=== PATIENT | male | born 1960 | race Caucasian/White ===

== ENCOUNTER 2024-11-14 11:59 | Inpatient (IN) ==
--- NOTE | 2024-11-14 12:32 | Emergency Department Note ---
Impression & Plan Acute CVA (cerebrovascular accident), Chest pain, Gait instability ED Provider Note HISTORY OF PRESENT ILLNESS: Patient is a 64-year-old male presenting with chest pain and gait instability. Patient reports that for the last 3 to 4 days he has been having intermittent episodes of chest pain. He states that he is also been feeling very rundown and tired. He states for the last 3 to 4 days he is also been having dizziness, described as feeling very unsteady on his feet. He reports he has been stumbling and running into things. He states that his vision has also been quite blurry. He denies any numbness or tingling or weakness in his extremities. He states that even yesterday walking in the store with a cart in front of him, he kept tripping and falling. He denies wrecking his head or loss of consciousness. He does report having intermittent sharp pains in the front of his head like a headache and also pain in the back of his neck. He denies any anticoagulation or antiplatelet use. He denies any history of cardiac stents. Denies any DVT or PE history. He denies any recent falls or chiropractic manipulation of his neck. He states that his hearing also sounds "advanced and everything sounds really loud." Denies any recent fevers. ROS: as above PHYSICAL EXAM: Constitutional: Patient appears in no acute distress. HENT: Head: Normocephalic and atraumatic. Eyes: EOMI, PERRL Mouth/Throat: Mucous membranes moist. Ears: TM intact without erythema or bulging. External canals without erythema or discharge. Neck: Trachea midline. Neck supple. Cardiovascular: RRR, No murmurs, rubs or gallops. Intact distal pulses. Pulmonary/Chest: No respiratory distress. Breath sounds clear and equal bilaterally. No wheezes or rales. Abdominal: Abdomen soft, no tenderness, rebound or guarding. Musculoskeletal: No edema, tenderness or deformity noted. Skin: Warm and dry. No rash, erythema, pallor or cyanosis Psychiatric: Appropriate mood and affect for situation. Neurological: Alert and keenly responsive. Facies symmetric. Able to raise eyebrows, close eyes, smile, puff mouth, stick out tongue, move tongue left and right and raise palate symmetrically. Able to shrug shoulders. PERRLA. SILT to forehead below eye and at jawline. Can hear soft noise bilaterally. Good finger to nose. Strength 5/5 in bilateral upper and lower extremities. SILT throughout bilateral upper and lower extremities. MDM: - Vitals signs showed hypertension - History obtained via patient. History as above. - Chronic conditions affecting care: HLD; DM-2 - Differential diagnoses include, but are not limited to: ACS; pneumonia; aortic dissection; CVA; intracranial hemorrhage; vertigo - Order placed for continuous cardiac monitoring. At this time, monitor showed rate of 76 bpm with normal sinus rhythm, per my interpretation. - External medical records reviewed. Primary care visit note dated 03/03/2019 was reviewed. Patient followed in their clinic for his type 2 diabetes. - EKG image interpreted by myself showed normal sinus rhythm. Rate 79 bpm. QT 440. No acute ischemic changes. Noted to have a right bundle branch block. - Laboratory workup interpreted by myself showed normal WBC; normal PT/INR; stable electrolytes; normal troponin - CXR image reviewed by myself 9 for pneumonia, per my interpretation. - CT head wo contrast showed interval right sided infarction of uncertain chronicity. - CTA head showed age-indeterminate basal ganglia and right frontal lobe chavez radiata lacunar infarcts that are new from 2020. Noted to have age- indeterminate high-grade stenosis of the V4 segment of the left vertebral artery which is new from previous imaging. - CTA neck showed progressive severe focal narrowing distally to the vertebral arteries bilaterally. - Patient has been having symptoms for over 3 days. He is outside the window for TNK. CT imaging does not show any large vessel occlusion. Patient was loaded with 324 mg of aspirin and 300 mg of Plavix given his stroke findings on CT imaging. Concerned that these are likely more subacute given that his symptoms started 3 to 4 days ago. Will admit to hospital service for further stroke workup. - Discussion was had with case advocate about patient's case and need for admission - Hospitalist consulted for admission - [facility] ASSESSMENT AND PLAN: Diagnosis: acute CVA; chest pain; gait instability Plan: Admit Past Med/Surg History Problem List (Updated 11/14/24 @ 14:09 by Shanna Campbell MD) Gait instability (Acute) Chest pain (Acute) Acute CVA (cerebrovascular accident) (Acute) COVID-19 (Acute) Vitamin B12 deficiency (Acute) Type 2 diabetes mellitus (Chronic) Hyperlipidemia (Acute) Diabetic peripheral neuropathy (Acute) Asthma (Acute) Abdominal lump (Acute) Medical History Abdominal lump Asthma Diabetic peripheral neuropathy History of renal calculi Hyperlipidemia Type 2 diabetes mellitus Vitamin B12 deficiency Family History Family/Other Breast cancer Colon cancer Prostate cancer Myocardial infarction Mother Heart disease Grandmother (Maternal) Heart disease Father Prostate cancer Grandfather (Paternal) Prostate cancer Denies family history of Ovarian cancer Social History Smoking Status: Never smoker Do You Dip or Chew Tobacco: No; Hx Alcohol Use: Yes Hx Substance Use: No Preferred Language: Mexican Visual Impairment: No Limitations Hearing Ability: Normal marital status: Single current occupational status: employed 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 Feels Safe at Home: Yes Physical Activity Frequency: Does not Exercise Seatbelt Use: always Allergies Allergies Allergy/AdvReac Type Severity Reaction Status Date / Time amoxicillin Allergy Unknown Verified 02/18/21 14:08 Penicillins Allergy HIVES Verified 02/18/21 14:08 Home Meds Home Medications Medication Instructions Recorded Confirmed cholecalciferol (vitamin D3) 50 2,000 units PO QAM #30 caps 02/11/19 11/14/24 mcg (2,000 unit) capsule gabapentin 300 mg capsule 300 mg PO UD 07/19/20 11/14/24 aspirin 81 mg chewable tablet 81 mg PO HS 02/18/21 11/14/24 cinnamon bark 500 mg capsule 500 mg PO BID 02/18/21 11/14/24 (Cinnamon) empagliflozin 25 mg tablet 25 mg PO QAM 02/18/21 11/14/24 (Jardiance) mecobalamin (vitamin B12) 1,000 1,000 mcg PO QAM 02/18/21 11/14/24 mcg chewable tablet (B12 Active) atorvastatin 20 mg tablet 20 mg PO QAM 11/14/24 11/14/24 dulaglutide 1.5 mg/0.5 mL 1.5 mg subcut WK 11/14/24 11/14/24 subcutaneous pen injector (Trulicity) Previous Rx's Medication Instructions Recorded metformin 1,000 mg tablet 1,000 mg PO BID #60 tabs 02/15/19 Results & Data (ED) Vital Signs Vital Signs - 24 hr 11/14/24 12:05 11/14/24 12:30 11/14/24 13:13 Temperature 36.7 C Temperature Source Temporal Artery Scan Pulse Rate 86 78 80 Pulse Rate [Apical] Pulse Rhythm Regular Pulse Rhythm [Apical] Pulse Strength [Apical] Respiratory Rate 18 16 Respiratory Effort / Characteristics Non-Labored Spontaneous Respiratory Depth Normal Respiratory Pattern Blood Pressure 195/98 H Blood Pressure [Right Arm] Blood Pressure Mean 130 Blood Pressure Mean [Right Arm] Blood Pressure Position [Right Arm] Pulse Oximetry 98 98 Oxygen Delivery Method Room Air Room Air Sepsis Recent Fever Within 48 Hours No Sepsis New/Unexplained Change in Mental Status No Sepsis Action Taken by Nursing No Action Required 11/14/24 13:39 11/14/24 14:20 Temperature Temperature Source Pulse Rate Pulse Rate [Apical] 76 80 Pulse Rhythm Pulse Rhythm [Apical] Regular Regular Pulse Strength [Apical] Normal Respiratory Rate 14 20 Respiratory Effort / Characteristics Non-Labored Spontaneous Non-Labored Spontaneous Respiratory Depth Normal Normal Respiratory Pattern Regular Regular Blood Pressure Blood Pressure [Right Arm] 170/95 H 176/90 H Blood Pressure Mean Blood Pressure Mean [Right Arm] 120 118 Blood Pressure Position [Right Arm] Lying Sitting Pulse Oximetry 96 98 Oxygen Delivery Method Room Air Room Air Sepsis Recent Fever Within 48 Hours Sepsis New/Unexplained Change in Mental Status Sepsis Action Taken by Nursing Laboratory Data 11/14/24 12:28 11/14/24 12:28 Lab Results 11/14/24 Range/Units 12:28 WBC 7.84 (4.8-10.8) K/ul RBC 5.34 (4.70-6.10) M/uL Hgb 15.8 (14.0-18.0) g/dl Hct 47.4 (42.0-52.0) % MCV 88.8 (80.0-100.0) fL MCH 29.6 (25.0-34.0) pg MCHC 33.3 (32.0-36.0) g/dL RDW Std Deviation 39.8 (36.4-46.3) fL RDW Coeff of Sandeep 12.3 (11.5-14.5) % Plt Count 296 (130-400) K/uL MPV 11.0 (9.4-12.4) fL Immature Gran % (Auto) 0.3 % Neut % (Auto) 59.9 % Lymph % (Auto) 27.8 % Citrus % (Auto) 10.2 % Eos % (Auto) 0.9 % Baso % (Auto) 0.9 % Neut # (Auto) 4.70 (1.40-6.50) K/uL Lymph # (Auto) 2.18 (1.20-3.40) K/uL Citrus # (Auto) 0.80 H (0.11-0.59) K/uL Eos # (Auto) 0.07 (0.00-0.50) K/uL Baso # (Auto) 0.07 (0.00-0.20) K/uL Immature Gran # (Auto) 0.02 (0.01-0.20) K/uL PT 10.3 (9.0-12.0) Seconds INR 0.9 (0.9-1.1) Sodium 139 (136-145) mmol/L Potassium 4.2 (3.5-5.1) mmol/L Chloride 103 (98-107) mmol/L Carbon Dioxide 27 (21-32) mmol/L Anion Gap 9 (3-11) BUN 13 (6-23) mg/dl Creatinine 0.89 (0.6-1.4) mg/dl Est Cr Clr Drug Dosing 95.8 ml/min eGFR 96.29 BUN/Creatinine Ratio 14.6 (10-20) Glucose 144 H (70-99(Fasting)) mg/dl Calcium 9.9 (8.6-10.3) mg/dl Total Bilirubin 0.6 (0.2-1.0) mg/dl AST 16 (13-39) U/L ALT 20 (7-52) U/L Alkaline Phosphatase 62 (34-104) U/L Troponin I High Sens 3.4 (0-20) pg/ml Total Protein 7.9 (6.0-8.3) gm/dl Albumin 4.7 (3.4-5.0) gm/dl Globulin 3.2 (2.5-4.0) gm/dl Albumin/Globulin Ratio 1.5 (0.9-2) Administered Medications Discontinued Medications Aspirin (Aspirin Chew 324 Mg) 324 mg PO NOW STA Stop: 11/14/24 14:07 Last Admin: 11/14/24 14:15 Dose: 324 mg Documented By: ALEXA Clopidogrel Bisulfate (Clopidogrel Bisulfate 300 Mg Tab) 300 mg PO NOW STA Stop: 11/14/24 14:07 Last Admin: 11/14/24 14:15 Dose: 300 mg Documented By: ALEXA Ioversol (Optiray 320 125ml) 120 ml IV ONCE ONE Stop: 11/14/24 12:50 Last Admin: 11/14/24 12:49 Dose: 120 ml Documented By: JOYCE Imaging Data Radiologist's Impression: Chest X-Ray 11/14/24 12:10 XR chest 1V portable CLINICAL HISTORY: dizziness COMPARISON STUDY: 04/13/2022 FINDINGS: Heart size and pulmonary vasculature are normal. No effusion, consolidation, or pneumothorax. IMPRESSION: No acute findings. ACT 112: Negative or not required by law. Electronically signed by: Gonzales Walker M.D. 11/14/2024 1:[address] 11/14/24 12:10 CT head/brain wo con CLINICAL HISTORY: dizziness; headache; blurred vision. TECHNIQUE: Multiple axial CT images of the head were obtained without contrast. A dose lowering technique was utilized adhering to the principles of ALARA. COMPARISON: 07/19/2020 FINDINGS: There are interval areas of hypodensity at the right basal ganglia and right periventricular white matter consistent with interval infarction of uncertain chronicity, possibly old.. No intracranial hemorrhage seen. No mass effect, midline shift, or hydrocephalus. Visualized paranasal sinuses are clear. No mastoid effusion. No skull fracture. IMPRESSION: 1. Interval right sided infarction of uncertain chronicity. 2. No intracranial hemorrhage seen. ACT 112: Negative or not required by law. The above report was generated using voice recognition software. It may contain grammatical, syntax or spelling errors. Electronically signed by: Gonzales Walker M.D. 11/14/2024 1:08 PM Head CTA 11/14/24 12:28 CT angio head w con CLINICAL HISTORY: 64 years-old Male with blurred vision; gait instability. Acute stroke like symptoms with blurry vision COMPARISON STUDY: Head CT and CTA neck exams of same day, head CT, CTA head and neck exams 09/19/2019. TECHNIQUE: Following the IV administration of 120 cc of Optiray, CT angiogram of the brain was performed from the skull base to the vertex. Images are reviewed in the axial, sagittal, and coronal planes. 3-D MIPS images are created and assessed. IV contrast was administered without complication. All measurements were obtained according to NASCET criteria. A dose lowering technique was utilized adhering to the principles of ALARA. FINDINGS: CT BRAIN: Dictated separately. Involutional changes with chronic microvascular ischemic disease. Age-indeterminate basal ganglia and right frontal lobe chavez radiata lacunar infarcts are new from prior. CT ANGIOGRAM OF THE BRAIN: Atherosclerosis of the distal internal carotid arteries results in up to 50% stenosis bilaterally. The bilateral anterior and middle cerebral arteries are also patent. Dominant right vertebral artery. There is high-grade stenosis within the mid V4 segment of the left vertebral artery on image 66 of series 301 which has progressed from the prior. Patent basilar artery. Mild multifocal stenoses noted throughout the left posterior cerebral arteries. There are a few areas of chronic short segment high-grade stenosis noted within the right P1 segment of the posterior cerebral artery which are similar to prior. IMPRESSION: 1. Age-indeterminate basal ganglia and right frontal lobe chavez radiata lacunar infarcts are new from the 2019 comparison. 2. Age-indeterminate high-grade stenosis of the V4 segment left vertebral artery is also new from prior. 3. Unchanged chronic high-grade stenoses of the right posterior cerebral artery. ACT 112: Negative or not required by law. The above report was generated using voice recognition software. It may contain grammatical, syntax or spelling errors. Electronically signed by: Angel Glaser M.D. 11/14/2024 1:10 PM Neck CTA 11/14/24 12:28 CT angio neck with con CLINICAL HISTORY: blurred vision; gait instability. COMPARISON STUDY: 07/19/2020 TECHNIQUE: Following the IV administration of 120 of Optiray, CT angiogram of the neck was performed from the aortic arch to the skull base. Images are reviewed in the axial, sagittal, and coronal planes. 3-D MIPS images are created and assessed. IV contrast was administered without complication. All measurements were calculated based on NASCET criteria. A dose lowering technique was utilized adhering to the principles of ALARA. CT DOSE: 1203.79 mGy.cm FINDINGS: Bilateral common and internal carotid arteries show no significant narrowing or occlusion. Right vertebral artery is dominant. There is severe focal narrowing distally at the right vertebral artery, progressive. There is severe focal narrowing/possible short segment occlusion distally at the left vertebral artery, progressive. No other significant narrowing seen at the vertebral arteries. Basilar artery is patent. IMPRESSION: 1. Progressive severe focal narrowing distally at the vertebral arteries bilaterally. 2. No other significant arterial narrowing or occlusion seen at the neck and brain. ACT 112: Negative or not required by law. The above report was generated using voice recognition software. It may contain grammatical, syntax or spelling errors. Electronically signed by: Gonzales Walker M.D. 11/14/2024 1:13 PM Discharge Plan Visit Data Chief Complaint: TIA Symptoms Stated Complaint: TIA SYMPTOMS ED Provider: Shanna Campbell Discharge Problem: Acute CVA (cerebrovascular accident), Chest pain, Gait instability Forms Stand Alone Forms: [facility] [place] [employer] Prescriptions Prescriptions: No Action metformin 1,000 mg tablet 1,000 mg PO BID Qty: 60 5RF cholecalciferol (vitamin D3) 2,000 unit capsule 2,000 units PO QAM Qty: 30 gabapentin 300 mg capsule 300 mg PO UD Rx Instructions: 300MG QAM, 600MG HS aspirin 81 mg tablet,chewable 81 mg PO HS Rx Instructions: doesn't typically take. cinnamon bark [Cinnamon] 500 mg Capsule 500 mg PO BID Jardiance 25 mg tablet 25 mg PO QAM mecobalamin (vitamin B12) [B12 Active] 1,000 mcg Tablet,Chewable 1,000 mcg PO QAM Trulicity 1.5 mg/0.5 mL pen injector 1.5 mg subcut WK Rx Instructions: on the weekend atorvastatin 20 mg tablet 20 mg PO QAM Referrals Referrals: Hector Lubin MD [Primary Care Provider] -
[2024-11-14] MEDS: OPTIRAY 320 125ml IV ONE (12:49)
--- NOTE | 2024-11-14 13:05 | XRay Report ---
XR chest 1V portable CLINICAL HISTORY: dizziness COMPARISON STUDY: 04/13/2022 FINDINGS: Heart size and pulmonary vasculature are normal. No effusion, consolidation, or pneumothora x. IMPRESSION: No acute findings. ACT 112: Negative or not required by law. Electronically signed by: Gonzales Walker M.D. 11/14/2024 1:04 PM
--- NOTE | 2024-11-14 13:10 | CT Scan Report ---
CT head/brain wo con CLINICAL HISTORY: dizziness; headache; blurred vision. TECHNIQUE: Multiple axial CT images of the head were obtained without contrast. A dose lowering tech nique was utilized adhering to the principles of ALARA. COMPARISON: 07/19/2020 FINDINGS: There are interval areas of hypodensity at the right basal ganglia and right periventricula r white matter consistent with interval infarction of uncertain chronicity, possibly old.. No intracr anial hemorrhage seen. No mass effect, midline shift, or hydrocephalus. Visualized paranasal sinuses are clear. No mastoid effusion. No skull fracture. IMPRESSION: 1. Interval right sided infarction of uncertain chronicity. 2. No intracranial hemorrhage seen. ACT 112: Negative or not required by law. The above report was generated using voice recognition software. It may contain grammatical, syntax o r spelling errors. Electronically signed by: Gonzales Walker M.D. 11/14/2024 1:08 PM
--- NOTE | 2024-11-14 13:11 | CT Scan Report ---
CT angio head w con CLINICAL HISTORY: 64 years-old Male with blurred vision; gait instability. Acute stroke like sympt oms with blurry vision COMPARISON STUDY: Head CT and CTA neck exams of same day, head CT, CTA head and neck exams 09/19/2019 . TECHNIQUE: Following the IV administration of 120 cc of Optiray, CT angiogram of the brain was perfor med from the skull base to the vertex. Images are reviewed in the axial, sagittal, and coronal planes . 3-D MIPS images are created and assessed. IV contrast was administered without complication. All me asurements were obtained according to NASCET criteria. A dose lowering technique was utilized adherin g to the principles of ALARA. FINDINGS: CT BRAIN: Dictated separately. Involutional changes with chronic microvascular ischemic disease. Age-indetermin ate basal ganglia and right frontal lobe chavez radiata lacunar infarcts are new from prior. CT ANGIOGRAM OF THE BRAIN: Atherosclerosis of the distal internal carotid arteries results in up to 50% stenosis bilaterally. Th e bilateral anterior and middle cerebral arteries are also patent. Dominant right vertebral artery. T here is high-grade stenosis within the mid V4 segment of the left vertebral artery on image 66 of ser ies 301 which has progressed from the prior. Patent basilar artery. Mild multifocal stenoses noted th roughout the left posterior cerebral arteries. There are a few areas of chronic short segment high-gr cathy stenosis noted within the right P1 segment of the posterior cerebral artery which are similar to prior. IMPRESSION: 1. Age-indeterminate basal ganglia and right frontal lobe chavez radiata lacunar infarcts are new fro m the 2019 comparison. 2. Age-indeterminate high-grade stenosis of the V4 segment left vertebral artery is also new from raf or. 3. Unchanged chronic high-grade stenoses of the right posterior cerebral artery. ACT 112: Negative or not required by law. The above report was generated using voice recognition software. It may contain grammatical, syntax o r spelling errors. Electronically signed by: Angel Glaser M.D. 11/14/2024 1:10 PM
--- NOTE | 2024-11-14 13:15 | CT Scan Report ---
CT angio neck with con CLINICAL HISTORY: blurred vision; gait instability. COMPARISON STUDY: 07/19/2020 TECHNIQUE: Following the IV administration of 120 of Optiray, CT angiogram of the neck was performed from the aortic arch to the skull base. Images are reviewed in the axial, sagittal, and coronal plane s. 3-D MIPS images are created and assessed. IV contrast was administered without complication. All m easurements were calculated based on NASCET criteria. A dose lowering technique was utilized adherin g to the principles of ALARA. CT DOSE: 1203.79 mGy.cm FINDINGS: Bilateral common and internal carotid arteries show no significant narrowing or occlusion. Right vertebral artery is dominant. There is severe focal narrowing distally at the right vertebral a rtery, progressive. There is severe focal narrowing/possible short segment occlusion distally at the left vertebral artery, progressive. No other significant narrowing seen at the vertebral arteries. Ba silar artery is patent. IMPRESSION: 1. Progressive severe focal narrowing distally at the vertebral arteries bilaterally. 2. No other significant arterial narrowing or occlusion seen at the neck and brain. ACT 112: Negative or not required by law. The above report was generated using voice recognition software. It may contain grammatical, syntax o r spelling errors. Electronically signed by: Gonzales Walker M.D. 11/14/2024 1:13 PM
--- NOTE | 2024-11-14 13:20 | Electrocardiogram Report ---
Test Reason : Blood Pressure : */* mmHG Vent. Rate : 79 BPM Atrial Rate : 79 BPM P-R Int : 160 ms QRS Dur : 150 ms QT Int : 440 ms P-R-T Axes : 47 49 25 degrees QTcB Int : 504 ms Normal sinus rhythm Right bundle branch block Abnormal ECG When compared with ECG of 19-Jul-2020 14:13, No significant change was found Confirmed by Pal Pace ([id number]) on 11/14/2024 1:20:04 PM Referred By: REFERRED SELF Confirmed By: Pal Pace
[2024-11-14 13:24] LABS: Basophils # (auto) 0.07 K/uL (0.00-0.20); Basophils % (auto) 0.9 %; Eosinophils # (auto) 0.07 K/uL (0.00-0.50); Eosinophils % (auto) 0.9 %; Hematocrit (blood only) 47.4 % (42.0-52.0); Hemoglobin 15.8 g/dl (14.0-18.0); Immature Granulocytes # (auto) 0.02 K/uL (0.01-0.20); Immature Granulocytes % (auto) 0.3 %; Lymphocytes # (auto) 2.18 K/uL (1.20-3.40); Lymphocytes % (auto) 27.8 %; Mean Corpuscular Hemoglobin 29.6 pg (25.0-34.0); Mean Corpuscular Hgb Conc 33.3 g/dL (32.0-36.0); Mean Corpuscular Volume 88.8 fL (80.0-100.0); Monocytes % (auto) 10.2 %; Neutrophils % (auto) 59.9 %; Platelet Count 296 K/uL (130-400); RDW Coefficient of Variation 12.3 % (11.5-14.5); RDW Standard Deviation 39.8 fL (36.4-46.3); Red Blood Count 5.34 M/uL (4.70-6.10); White Blood Count 7.84 K/ul (4.8-10.8)
[2024-11-14 13:35] LABS: INR 0.9 (0.9-1.1); Prothrombin Time 10.3 Seconds (9.0-12.0)
[2024-11-14 13:38] LABS: Troponin I High Sensitivity 3.4 pg/ml (0-20)
[2024-11-14 13:47] LABS: Albumin Level 4.7 gm/dl (3.4-5.0); Bilirubin,Total 0.6 mg/dl (0.2-1.0); Calcium 9.9 mg/dl (8.6-10.3); Potassium 4.2 mmol/L (3.5-5.1)
[2024-11-14 13:53] LABS: Albumin Globulin Ratio 1.5 (0.9-2); BUN Creatinine Ratio 14.6 (10-20); Creatinine Clr Calc Pharmacy 95.8 ml/min; Globulin 3.2 gm/dl (2.5-4.0); Total Protein 7.9 gm/dl (6.0-8.3)
[2024-11-14] MEDS: CLOPIDOGREL BISULFATE 300 MG TAB PO STA (14:15)
[2024-11-14] MEDS: ASPIRIN CHEW 324 MG PO STA (14:15)
--- NOTE | 2024-11-14 14:37 | History & Physical Report ---
Date of Service November 14, 2024 Assessment & Plan (1) Acute CVA (cerebrovascular accident): (2) Gait instability: (3) Type 2 diabetes mellitus: (4) Hyperlipidemia: (5) Diabetic peripheral neuropathy: (6) Vitamin B12 deficiency: Plan This is a 64 y/o male with history of prior CVA, DM2, dyslipidemia, diabetic neuropathy, B12 deficiency, and other history as outlined below who presents with issues with his balance for the last 2-3 days. Work-up in the ED revealed age-indeterminate CVA but likely subacute when considering pt's clinical presentation. Imaging was personally reviewed. Prior neurology notes in [facility] were reviewed - pt has not been following regularly. Last PCP note from visit last week reviewed - PCP discussed the need for recommended aspirin and taking it daily at this visit. #Acute to subacute CVA, likely posterior circulation. - Admit to PCU - Neuro checks per protocol - MRI brain w/ and w/out contrast for further characterization of abnormalities seen on CT - Consult neurology - Continue DAPT for now - Increase to high-dose atorvastatin - Lipid panel and A1c in the AM - ECHO - PT/OT evaluations - Fall precautions - BP in the ED noted to be markedly elevated, will start losartan 100 mg daily and monitor. #Type 2 Diabetes #Diabetic peripheral neuropathy - BSG ACHS - A1c as above - Insulin sliding scale while admitted (discussed with pt and his ) - Diabetic diet - Holding oral meds while admitted #Hyperlipidemia - Lipid panel in the AM - Statin as above #B12 deficiency - Chronic, stable, continue outpatient supplement. Pt seen and reviewed with collaborating physician, Dr. Miranda. Plan of care discussed and as outlined above. Code status: full code DVT prophylaxis: Britany Dahl PA-C History of Present Illness Chief Complaint: loss of balance Primary Care Provider: Hector Lubin MD This is a 64 y/o male with history of prior CVA, DM2, dyslipidemia, diabetic neuropathy, B12 deficiency, and other history as outlined below who presents with issues with his balance for the last 2-3 days. He reports that he has felt off for the last two weeks with blurry vision then increased sensitivity to sounds and poor appetite. Over the last 2-3 days, he has noted difficulty with feeling off balance though denies overt vertigo or dizziness. He feels like he cannot keep his balance particularly with position changes. He has fallen at home when he lost his balance trying to get changed. Two days ago, he noted being at the grocery store and having to use the cart to help him stay balanced while walking through the store. He denies dysphagia, dysarthria, expressive aphasia, syncope. He did develop a posterior GARAY today, which was part of the reason he came to the ED for evaluation. Denies significant chest pain, dyspnea, change in bowel habits, urinary symptoms. He does note living under high amounts of stress but no significant stressful event recently. He admits that he doesn't consistently take the recommended aspirin 81 mg as he often forgets it. Of note, he saw his PCP last week and his A1c from Sep was noted to be elevated at 7.5 and triglycerides were elevated to ~400 on recent labs, which was attributed to the hyperglycemia. He is taking the recommended atorvastatin 40 mg daily as prescribed. Allergies Allergy/AdvReac Type Severity Reaction Status Date / Time amoxicillin Allergy Unknown Verified 02/18/21 14:08 Penicillins Allergy HIVES Verified 02/18/21 14:08 Home Medications Medication Instructions Recorded Confirmed Type cholecalciferol (vitamin D3) 50 2,000 units PO QAM #30 caps 02/11/19 11/14/24 History mcg (2,000 unit) capsule metformin 1,000 mg tablet 1,000 mg PO BID #60 tabs 02/15/19 11/14/24 Rx gabapentin 300 mg capsule 300 mg PO UD 07/19/20 11/14/24 History aspirin 81 mg chewable tablet 81 mg PO QAM 02/18/21 11/14/24 History cinnamon bark 500 mg capsule 500 mg PO BID 02/18/21 11/14/24 History (Cinnamon) empagliflozin 25 mg tablet 25 mg PO QAM 02/18/21 11/14/24 History (Jardiance) mecobalamin (vitamin B12) 1,000 1,000 mcg PO QAM 02/18/21 11/14/24 History mcg chewable tablet (B12 Active) alpha lipoic acid 600 mg tablet 600 mg PO DAILY 11/14/24 11/14/24 History atorvastatin 40 mg tablet 40 mg PO DAILY 11/14/24 11/14/24 History dulaglutide 1.5 mg/0.5 mL 1.5 mg subcut WK 11/14/24 11/14/24 History subcutaneous pen injector (Trulicity) Past Med/Surg History Problem List (Updated 11/14/24 @ 17:03 by Jacki Dahl PA-C) Gait instability (Acute) Chest pain (Acute) Acute CVA (cerebrovascular accident) (Acute) Medical History Vitamin B12 deficiency Type 2 diabetes mellitus Hyperlipidemia Diabetic peripheral neuropathy History of renal calculi Surgical History History of ureteroscopy ureteral stent placement History of cataract surgery Family History Family/Other Breast cancer Colon cancer Prostate cancer Myocardial infarction Mother Heart disease Grandmother (Maternal) Heart disease Father Prostate cancer Stroke Diabetes Grandfather (Paternal) Prostate cancer Sister Diabetes Family/Other Diabetes nephew Denies family history of Ovarian cancer Social History Smoking Status: Never smoker Do You Dip or Chew Tobacco: No; Hx Alcohol Use: Yes Alcohol type: beer Hx Substance Use: No Preferred Language: Nigerien Communication Ability: Effective Visual Impairment: No Limitations Hearing Ability: Normal Storage Receipt Poster Required: No Beliefs That Will Affect Care: None marital status: Single Current Living Situation: Spouse current occupational status: employed 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 Other Information That Helps Us Care for You: No Feels Safe at Home: Yes Safety Concerns: Feels Safe At This Time Physical Activity Frequency: Does not Exercise Seatbelt Use: always Assistive Devices: None Review of Systems Review of Systems: All systems reviewed & are unremarkable except as noted in Subjective Physical Exam Physical Exam: General: awake, alert, NAD HEENT: PERRL, EOMI, tongue midline, no facial droop at present Neck: supple, trachea midline Heart: RRR, no M/G/R Lungs: CTA bilaterally Abdomen: soft, NT, +BS Extremities: distal pulses intact and equal, no pedal edema Neurologic: moving all extremities, no focal weakness noted, finger to nose intact, negative seated Romberg, no pronator drift Skin: warm, dry, no jaundice or rashes noted Results & Data Results & Data Vital Signs (Past 12 Hours) Vital Signs Temp Pulse Pulse Resp BP BP Pulse Ox 11/14/24 14:20 80 20 176/90 H 98 11/14/24 13:39 76 14 170/95 H 96 11/14/24 13:13 80 11/14/24 12:30 78 16 98 11/14/24 12:05 36.7 C 86 18 195/98 H 98 O2 Del Method 11/14/24 14:20 Room Air 11/14/24 13:39 Room Air 11/14/24 13:13 11/14/24 12:30 Room Air 11/14/24 12:05 Room Air Laboratory Results Lab Results 11/14/24 Range/Units 12:28 WBC 7.84 (4.8-10.8) K/ul RBC 5.34 (4.70-6.10) M/uL Hgb 15.8 (14.0-18.0) g/dl Hct 47.4 (42.0-52.0) % MCV 88.8 (80.0-100.0) fL MCH 29.6 (25.0-34.0) pg MCHC 33.3 (32.0-36.0) g/dL RDW Std Deviation 39.8 (36.4-46.3) fL RDW Coeff of Sandeep 12.3 (11.5-14.5) % Plt Count 296 (130-400) K/uL MPV 11.0 (9.4-12.4) fL Immature Gran % (Auto) 0.3 % Neut % (Auto) 59.9 % Lymph % (Auto) 27.8 % [place] % (Auto) 10.2 % Eos % (Auto) 0.9 % Baso % (Auto) 0.9 % Neut # (Auto) 4.70 (1.40-6.50) K/uL Lymph # (Auto) 2.18 (1.20-3.40) K/uL [place] # (Auto) 0.80 H (0.11-0.59) K/uL Eos # (Auto) 0.07 (0.00-0.50) K/uL Baso # (Auto) 0.07 (0.00-0.20) K/uL Immature Gran # (Auto) 0.02 (0.01-0.20) K/uL PT 10.3 (9.0-12.0) Seconds INR 0.9 (0.9-1.1) Sodium 139 (136-145) mmol/L Potassium 4.2 (3.5-5.1) mmol/L Chloride 103 (98-107) mmol/L Carbon Dioxide 27 (21-32) mmol/L Anion Gap 9 (3-11) BUN 13 (6-23) mg/dl Creatinine 0.89 (0.6-1.4) mg/dl Est Cr Clr Drug Dosing 95.8 ml/min eGFR 96.29 BUN/Creatinine Ratio 14.6 (10-20) Glucose 144 H (70-99(Fasting)) mg/dl Calcium 9.9 (8.6-10.3) mg/dl Total Bilirubin 0.6 (0.2-1.0) mg/dl AST 16 (13-39) U/L ALT 20 (7-52) U/L Alkaline Phosphatase 62 (34-104) U/L Troponin I High Sens 3.4 (0-20) pg/ml Total Protein 7.9 (6.0-8.3) gm/dl Albumin 4.7 (3.4-5.0) gm/dl Globulin 3.2 (2.5-4.0) gm/dl Albumin/Globulin Ratio 1.5 (0.9-2) Diagnostic Findings Chest X-Ray 11/14/24 12:10 XR chest 1V portable CLINICAL HISTORY: dizziness COMPARISON STUDY: 04/13/2022 FINDINGS: Heart size and pulmonary vasculature are normal. No effusion, consolidation, or pneumothorax. IMPRESSION: No acute findings. ACT 112: Negative or not required by law. Electronically signed by: Gonzales Walker M.D. 11/14/2024 1:[address] 11/14/24 12:10 CT head/brain wo con CLINICAL HISTORY: dizziness; headache; blurred vision. TECHNIQUE: Multiple axial CT images of the head were obtained without contrast. A dose lowering technique was utilized adhering to the principles of ALARA. COMPARISON: 07/19/2020 FINDINGS: There are interval areas of hypodensity at the right basal ganglia and right periventricular white matter consistent with interval infarction of unce rtain chronicity, possibly old.. No intracranial hemorrhage seen. No mass effect, midline shift, or hydrocephalus. Visualized paranasal sinuses are clear. No mastoid effusion. No skull fracture. IMPRESSION: 1. Interval right sided infarction of uncertain chronicity. 2. No intracranial hemorrhage seen. ACT 112: Negative or not required by law. The above report was generated using voice recognition software. It may contain grammatical, syntax or spelling errors. Electronically signed by: Gonzales Walker M.D. 11/14/2024 1:08 PM Head CTA 11/14/24 12:28 CT angio head w con CLINICAL HISTORY: 64 years-old Male with blurred vision; gait instability. Acute stroke like symptoms with blurry vision COMPARISON STUDY: Head CT and CTA neck exams of same day, head CT, CTA head and neck exams 09/19/2019. TECHNIQUE: Following the IV administration of 120 cc of Optiray, CT angiogram of the brain was performed from the skull base to the vertex. Images are reviewed in the axial, sagittal, and coronal planes. 3-D MIPS images are created and assessed. IV contrast was administered without complication. All measurements were obtained according to NASCET criteria. A dose lowering technique was utilized adhering to the principles of ALARA. FINDINGS: CT BRAIN: Dictated separately. Involutional changes with chronic microvascular ischemic disease. Age-indeterminate basal ganglia and right frontal lobe chavez radiata lacunar infarcts are new from prior. CT ANGIOGRAM OF THE BRAIN: Atherosclerosis of the distal internal carotid arteries results in up to 50% stenosis bilaterally. The bilateral anterior and middle cerebral arteries are also patent. Dominant right vertebral artery. There is high-grade stenosis within the mid V4 segment of the left vertebral artery on image 66 of series 301 which has progressed from the prior. Patent basilar artery. Mild multifocal stenoses noted throughout the left posterior cerebral arteries. There are a few areas of chronic short segment high-grade stenosis noted within the right P1 segment of the posterior cerebral artery which are similar to prior. IMPRESSION: 1. Age-indeterminate basal ganglia and right frontal lobe chavez radiata lacunar infarcts are new from the 2019 comparison. 2. Age-indeterminate high-grade stenosis of the V4 segment left vertebral artery is also new from prior. 3. Unchanged chronic high-grade stenoses of the right posterior cerebral artery. ACT 112: Negative or not required by law. The above report was generated using voice recognition software. It may contain grammatical, syntax or spelling errors. Electronically signed by: Angel Glaser M.D. 11/14/2024 1:10 PM Neck CTA 11/14/24 12:28 CT angio neck with con CLINICAL HISTORY: blurred vision; gait instability. COMPARISON STUDY: 07/19/2020 TECHNIQUE: Following the IV administration of 120 of Optiray, CT angiogram of the neck was performed from the aortic arch to the skull base. Images are reviewed in the axial, sagittal, and coronal planes. 3-D MIPS images are created and assessed. IV contrast was administered without complication. All measure ments were calculated based on NASCET criteria. A dose lowering technique was utilized adhering to the principles of ALARA. CT DOSE: 1203.79 mGy.cm FINDINGS: Bilateral common and internal carotid arteries show no significant narrowing or occlusion. Right vertebral artery is dominant. There is severe focal narrowing distally at the right vertebral artery, progressive. There is severe focal narrowing/possible short segment occlusion distally at the left vertebral artery, progressive. No other significant narrowing seen at the vertebral arteries. Basilar artery is patent. IMPRESSION: 1. Progressive severe focal narrowing distally at the vertebral arteries bilaterally. 2. No other significant arterial narrowing or occlusion seen at the neck and brain. ACT 112: Negative or not required by law. The above report was generated using voice recognition software. It may contain grammatical, syntax or spelling errors. Electronically signed by: Gonzales Walker M.D. 11/14/2024 1:13 PM Medications Administered Discontinued Medications Aspirin (Aspirin Chew 324 Mg) 324 mg PO NOW STA Stop: 11/14/24 14:07 Last Admin: 11/14/24 14:15 Dose: 324 mg Documented By: ALEXA Clopidogrel Bisulfate (Clopidogrel Bisulfate 300 Mg Tab) 300 mg PO NOW STA Stop: 11/14/24 14:07 Last Admin: 11/14/24 14:15 Dose: 300 mg Documented By: ALEXA Ioversol (Optiray 320 125ml) 120 ml IV ONCE ONE Stop: 11/14/24 12:50 Last Admin: 11/14/24 12:49 Dose: 120 ml Documented By: JOYCE Supervising Physician Co-Signing Physician Notes Patient seen and examined independently. Discussed with above provider Patient is a 64-year-old male with past medical history of type 2 diabetes mellitus, hyperlipidemia, diabetic neuropathy, hypertension, presents to the hospital with concern of subacute stroke. Patient reports imbalance for last 3 days. No focal neurological deficit on examination. CT head without contrast showed interval right-sided infarction of uncertain chronicity. CTA head and neck shows progressive severe focal narrowing of distally at the vertebral arteries bilaterally. He was also found to have a is indeterminant basal ganglia and right frontal lobe infarct. Plan to obtain MRI brain with and without contrast. Started on aspirin and Plavix. Increase Lipitor to 40 mg once a day. Obtain lipid panel in AM. Start losartan for high blood pressure. PT OT eval and neurology consultation. I have reviewed the advanced practitioner's documentation, and I agree with, and take responsibility for the plan of care I spent a total of 25 minutes coordinating, documenting, and providing care for this patient excluding time spent in the performance of separately billed services. All of the aforementioned completed while collaborating with the assigned advanced practitioner for a full treatment plan (3) Type 2 diabetes mellitus Diabetes mellitus complication status: with other specified complication Diabetes mellitus terminal makeup operator insulin use: without terminal makeup operator use Qualified Code(s): E11.69 - Type 2 diabetes mellitus with other specified complication (4) Hyperlipidemia Hyperlipidemia type: unspecified Qualified Code(s): E78.5 - Hyperlipidemia, unspecified
[2024-11-14] MEDS ORDERED: GLUCAGON FOR INJ 1 MG VIAL SQ PRN (16:37)
[2024-11-14] MEDS ORDERED: CARBOHYDRATES FOR HYPOGLYCEMIA PO PRN (16:37)
[2024-11-14] MEDS ORDERED: GLUCOSE 40% GEL 15 GM TUBE PO PRN (16:37)
[2024-11-14] MEDS ORDERED: GLUCOSE 10 TAB/TUBE PO PRN (16:37)
[2024-11-14] MEDS ORDERED: DEXTROSE 50% 50 ML SYRINGE IV PRN (16:37)
[2024-11-14] MEDS ORDERED: ACETAMINOPHEN 325 MG TAB PO PRN (16:55)
[2024-11-14] MEDS ORDERED: PHARMACIST DISCHARGE MED REC CONSULT PRN (16:55)
[2024-11-14] MEDS: LOSARTAN POTASSIUM 50 MG TAB PO SCH (18:31)
[2024-11-14 19:33] LABS: Appearance Urine Clear (Clear); Bilirubin Urine Negative (Negative); Blood Urine Negative (Negative); Color Urine Yellow; Glucose Urine UA 3+ (Negative); Ketones Urine 2+ (Negative); Leukocyte Esterase Urine Negative (Negative); Nitrite Urine Negative (Negative); Protein Urine Negative (Negative); Urobilinogen Urine Negative (Negative)
--- OUTSIDE RECORDS SUMMARY | 2024-11-14 19:56 | External Medical Summary | Summary of Care ---
Author Name Unknown Organization [facility] Address [address] [place] [address] Phone [phone] Care Team Providers Care Workday Consultant Name Role Phone Hector Lubin MD Primary Care Provider [phone] Reason for Visit * Reason Comments eRx-Medication Refill Encounter Details Date Type Department Care Team (Late st Contact Info) Description 09/07/2024 Refill Pharmacy, [facility] [address] [place] [address] Hector Lubin MD [address] [place] [address] Type 2 diabetes mellitus with hemoglobin A1c goal of less than 7.0% ([facility]); Dyslipidemia; Diabetic polyneuropathy associated with type 2 diabetes mellitus ([facility]) Allergies Active Allergy Reactions Criticality Noted Date Comments Penicillins Hives 04/04/2013 documented as of this encounter (statuses as of 09/08/2024) Medications B-12 500 MCG PO TABS 1 TABLET DAILY 02/28/20 14 Active CINNAMON 500 MG PO CAPS 2 tablets daily 02/28/20 14 Active VITAMIN D 1000 UNITS PO CAPSIndications:Vi tamin D deficiency 1 capsule daily 30 Cap 11 03/08/20 14 Active Alpha-Lipoic Acid 600 MG Capsule One in the am daily Active Glucose Blood (EASY TRAK BLOOD GLUCOSE TEST) STRPIndications:Ty pe 2 diabetes mellitus with hemoglobin A1c goal of less than 7.0% ([facility]) Twice daily Dx E11.9 100 Strip 5 07/06/20 16 Active Glucose Blood (ONETOUCH VERIO) STRPIndications:Ty pe 2 diabetes mellitus with hemoglobin A1c goal of less than 7.0% (HCC) Twice daily 100 Strip 5 08/29/19 17 Active PEG 3136-XAc-AwFdg-NaC l-NaSulf 236 GM Oral Solution Reconstituted Please take according to Colonoscopy prep instructions. 4000 mL 03/18/20 21 Active diphenhydrAMINE HCl 25 MG Oral Tablet (Benadryl) Use 1-2 tablets at onset of suspected allergic reaction. May repeat dose every 4-6 hours as needed 30 Tab 05/08/20 21 Active Loratadine 10 MG Oral Tablet (Claritin) Take 1 tablet daily as needed for allergic nasal symptoms or persistent itchy rash. 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 90 Tablet 3 12/02/19 24 Active Trulicity 1.5 MG/0.5ML Subcutaneous Solution Auto-injector (Dulaglutide) INJECT THE CONTENTS OF 1 SYRINGE UNDER THE SKIN ONCE A WEEK 6 mL 1 07/01/20 24 Active Atorvastatin Calcium 40 MG Oral Tablet (Lipitor)Indicatio ns:Dyslipidemia Take 1 Tablet by mouth in the morning. 90 Tablet 09/08/19 25 Active Empagliflozin 25 MG Oral Tablet (Jardiance) Take 1 Tablet by mouth in the morning. 90 Tablet 09/08/19 25 Active metFORMIN HCl 1000 MG Oral Tablet (Glucophage)Indica tions:Type 2 diabetes mellitus with hemoglobin A1c goal of less than 7.0% (HCC) Take 1 Tablet by mouth 2 times a day with morning and evening meals. 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 stroke 07/16/2022 Type 2 diabetes mellitus wit h hemoglobin A1c goal of less than 7.0% Overview (11/27/2015): ICD-10 update of inactive term Dyslipidemia Neuropathy, diabetic documented as of this encounter (statuses as of 09/08/2024) Resolved Problems Problem Noted Date Diagnosed Date Resolved Date Allergic rhinitis 05/08/2021 04/13/2022 Depression 04/13/2022 Vitamin D deficiency 022 documented as of this encounter (statuses as of 09/08/2024) Immunizations Name Administration Dates Next Due Pneumococcal Polysaccharide PPV23 (Pneumovax) Seasonal Influenza Virus Vac cine, Unspecified Formulation 07/11/2015 Seasonal Influenza, Quadrivalent, No Preserve, I M 07/11/2015 TDAP (age 10 and older)(Boostrix) 01/31/2014 documented as of this encounter Social History Tobacco Use Types Packs/Day Years Used Date Smoking Tobacco: Never Smokeless Tobacco: Never Comments:No passive smoke ex posure Alcohol Use Standard Drinks/Week Comments No 0 (1 standard drink = 0.6 oz pur e alcohol) very rare PHQ-2 Answer Date Recorded PHQ Adult Total Score 0 10/14/2023 Hunger Vital Sign Answer Date Recorded Within the past 12 months, y ou worried that your food would run out before you got the money to buy more. Never true 04/09/20 23 Within the past 12 months, t he food you bought just didn't last and you didn't have money to get more. Never true 04/09/2023 Childcare Answer Date Recorded Do you feel overwhelmed with taking care of a child, family member or friend? No 04/09/2023 Does your family need help f inding childcare? (Household - for ages 0-17 years) Not on file 04/09/2023 Clothing Answer Date Recorded Have you been unable to get clothing when it was really needed? No 04/09/2023 Is your family able to get c lothes or diapers when needed? (Household - for ages 0-17 years) Not on file 04/09/2023 Personal Safety Answer Date Recorded Do you feel unsafe or have concerns for your saf ety? No 04/09/2023 Do you have concerns for you r family's safety? (Household - for ages 0-17 years) Not on file 04/09/2023 Utilities Answer Date Recorded Do you have trouble paying y our heating, water, or electric bill? No 04/09/2023 Is your family able to pay t he heat, water, or electric bill? (Household - for ages 0-17 years) Not on file 04/09/2023 Does your family have access to good internet? (Household - for ages 0-17 years) Not on file 04/09/2023 Employment Status Answer Date Recorded Are you unemployed or without regular income? No 04/09/2023 Does the household have a re gular source of income? (Household - for ages 0-17 years) Not on file 04/09/2023 Social Connections Answer Date Recorded How often do you feel lonely or isolated from th ose around you? Never 04/09/2023 Financial Resource Strain Answer Date R ecorded Do you have any trouble payi ng for your medications, or do you think you might in the future? No 04/09/2023 Does your family have troubl e paying for medicine? (Household - for ages 0-17 years) Not on file 04/09/2023 Transportation Needs Answer Date Record ed READ ONLY Do you have troubl e getting a ride to medical visits or work? Never True 04/09/2023 Does your family have a hard time getting a ride to doctors visits? (Household - for ages 0-17 years) Not on file 04/09/2023 Has lack of transportation k ept you from medical appointments, meetings, work, or from getting things needed for daily living? Check all that apply. (Adult - for ages 18 years and over) Not on file 04/09/2023 Do you (or your family) have trouble finding or paying for a ride (transportation)? (Household - for ages 0-17 years) Not on file 04/09/2023 Housing Stability Answer Date Recorded Do you currently live in a s helter or have no steady place to sleep at night? No 04/09/2023 READ ONLY Do you think you a re at risk of becoming homeless? No 04/09/2023 Does your family worry about paying for your home or becoming homeless? (Household - for ages 0-17 years) Not on file 0 04/09/2023 Are you homeless or worried that you might be in the future? (Adult - for ages 18 years and over) Not on file 3 Are you (or your family) yulia eless or worried that you might be in the future? (Household - for ages 0-17 years) Not on file Food Insecurity Answer Date Recorded Do you need food for this week? No 04/09/2023 Are you able to get enough f ood for your family? (Household - for ages 0-17 years) Not on file 04/09/2023 Does your family need food t his week? (Household - for ages 0-17 years) Not on file 04/09/2023 Do you always have enough fo od for your family? (Household - for ages 0-17 years) Not on file 04/09/2023 Sex and Gender Information Value Date Recorded Sex Assigned at Male 08/18/2019 8:00 AM EST Legal Sex Male 2:48 PM EDT Gender Identity Male 08/18/2019 8:00 AM EST Sexual Orientation Straight 08/18/2019 8: 00 AM EST Occupation Industry Job Start Date Job End Date Not on file Not on file Not on file Not on file documented as of this encounter Miscellaneous Notes * Telephone Encounter - Florecita Le, [facility] - 09/08/2024 9:16 AM ESTRefused Prescriptions: Disp Refills Atorvastatin Calcium 40 MG Oral Tablet (Li*90 Tab*0 Sig: TAKE 1 TABLET BY MOUTH ONCE DAILY Refused By: FLORECITA LE Reason for Refusal: Duplicate Request Gabapentin 300 MG Oral Capsule (Neurontin) 360 Ca*0 Sig: TAKE ONE CAPSULE BY MOUTH TWICE A DAY AND TWO CAPSULES AT BEDTIME Refused By: FLORECITA LE Reason for Refusal: Duplic ate Request Jardiance 25 MG Oral Tablet (Empagliflozin)90 Tab*0 Sig: TAKE 1 TABLET BY MOUTH ONCE DAILY Refused By: FLORECITA LE Reason for Refusal: Duplicate Request metFORMIN HCl 1000 MG Oral Tablet (Glucoph*180 Ta*0 Sig: TAKE 1 TABLET BY MOUTH TWICE DAILY -EVERY MORNING AND BEFORE BEDTIME Refused By: FLORECITA LE Reason for Refusal: Duplicate Request Trulicity 1.5 MG/0.5ML Subcu taneous Soluti*6 mL 0 Sig: INJECT THE CONTENTS OF 1 SYRINGE UNDER THE SKIN ONCE A WEEK Refused By: FLORECITA LE Reason for Refusal: Duplicate Request * Telephone Encounter - Lisa Hudson [facility] - 09/07/2024 12:53 PM EST Pending Prescriptions: Disp Refills Atorvastatin Calcium 40 MG Oral Tablet [Ph*90 Tab*0 Sig: TAKE 1TABLET BY MOUTH ONCE DAILY Gabapentin 300 MG Oral Capsule [Pharmacy M*360 Ca*0 Sig: TAKE ONE CAPSULE BY MOUTH TWICE A DAY AND TWO CAPSULES AT BEDTIME Jardiance 25 MG Oral Tablet [Pharmacy Med *90 Tab*0 Sig: TAKE 1 TABLET BY MOUTH ONCE DAILY metFORMIN HCl 1000 MG Oral Tablet [Pharmac*180 Ta*0 Sig: TAKE 1 TABLET BY MOUTH TWICE DAILY -EVERY MORNING AND BEFORE BEDTIME Trulicity 1.5 MG/0.5ML Subcutaneous Soluti*6 mL 0 Sig: INJECT THE CONTENTS OF 1 SYRINGE UNDER THE SKIN ONCE A WEEK-------- documented in this encounter Plan of Treatment Upcoming Encounters Date Type Department Care Team (Late st Contact Info) Description 10/26/2024 4:00 PM EDT Office Visit [facility] [address] [phone] Hector Lubin MD [address] [address] 12/19/2024 3:00 PM EDT Office Visit Ophthalmology, [facility] [address] [place] [address] Pal Salvador DO [address] [place] [address] Scheduled Procedures Name Priority Associated Diagnoses Date/Ti me COLONOSCOPY FLEXIBLE PROXIMAL DIAGNOSTIC Recall History of colon polyps Health Maintenance Due Date Last Done Comments Cologuard 2006 Fecal Occult Blood Test 2006 Sigmoidoscopy 2006 Zoster Vaccines (1 of 2) 2011 Pneumococcal Vaccine: 50+ Years (2 of 2 - PCV) 02/27/2015 02/27/2014 DTap/Tdap Vaccines (2 - Td or Tdap) 02/01/2024 01/31/2014 Influenza Vaccine (FLU shot) (#1) 2024 07/11/2015, 07/11/2015 Albumin/Creatinine Ratio 04/09/2024 023, 08/09/2020, 07/31/2017, Additional history exists B-12 04/09/2024 04/09/2023, 06/0 01/2022, 03/18/2021, Additional history exists Diabetic Foot Exam 04/09/2024 04/09/2023, 1 09/10/2020, 09/12/2020, Additional history exists GFR 04/09/2024 04/09/2023, 06/0 01/2022, 03/18/2021, Additional history exists HbA1c 04/15/2024 10/14/2023, 09/0 01/2023, 01/07/2022, Additional history exists Diabetic Eye Exam 09/16/2024 09/16/2023, , 10/30/2022, Additional history exists Depression Screening 10/13/2024 10/14/2023 Colonoscopy 06/14/2026 06/14/2021, 06/03, 06/15/2017, Additional history exists Colorectal Cancer Screening 06/14/2026 RETIRED - COLONOSCOPY-EVERY 5 YRS AGES 18-100 Discontinued 06/14/2021, 06/14/2021, 06/15/2017, Additional history exists COVID-19 Vaccine Discontinued HPV (Gardasil) Vaccine Aged Out No lo nger eligible based on patient's age to complete this topic Hepatitis B Vaccine Aged Out No longe r eligible based on patient's age to complete this topic MENINGOCOCCAL (MENACTRA/MENVEO) Aged Out No longer eligible based on patient's age to complete this topic documented as of this encounter Medical Devices Implanted Type Area Park Aide Device Identifier Shelf Expiration Date Model / Serial / Lot Lens Intraoc 21.0 - [id number] - [id number] Implanted:Qty: 1 on 06/18/2021 by Joaquín Lieberman MD at OR [facility] Right: Eye [employer] 03/02/2026 [id number] / [id number] / [id number] Lens Intraoc 21.5 - [id number] - [id number] Implanted:Qty: 1 on 06/25/2021 by Joaquín Lieberman MD at OR [facility] Left: Eye [employer] 03/02/2026 [id number] / [id number] / documented as of this encounter Visit Diagnoses Diagnosis Type 2 diabetes mellitus with hemoglobin A1c goal of less than 7.0% (HCC) Dyslipidemia Other and unspecified hyperlipidemia Diabetic polyneuropathy associated with type 2 diabetes mellitus (HCC) documented in this encounter Care Teams Workday Consultant Relationship Specialty Start Date End Date Hector Lubin MD PCP - General Family Medicine 02/27/14 documented as of this encounter
--- OUTSIDE RECORDS SUMMARY | 2024-11-14 19:56 | External Medical Summary ---
Author Name Unknown Address Unknown Organization [id number]:LABORATORY [facility] [place] - [address] [facility] [place] [address] Laboratory Report Ordering Provider Test Date Status ANGELICA RICHARDSON 09/12/2024 07:42:55 Final Observation Date Value Abnormality Reference (Units ) Status BUN 09/12/2024 07:42:55 16 6-20 (mg/dL) Final Creatinine 09/12/2024 07:42:55 0.9 0.6-1.2 (mg/dL) Final Glomerular filtration rate/1.73 sq M.predicted [Volume Rate/Area] in Serum, Plasma or Blood by Creatinine-based formula (CKD-EPI) 09/12/2024 07:42:55 >90 >=60 (mL/min) Final eGFR is calculated based on the CKD-EPI 2020 equation. Sodium 09/12/2024 07:42:55 138 135-146 (m mol/L) Final Potassium 09/12/2024 07:42:55 4.5 3.5-5.1 (m mol/L) Final Cl 09/12/2024 07:42:55 100 98-107 (mm ol/L) Final CO2 09/12/2024 07:42:55 24 22-32 (mmo l/L) Final Anion gap 09/12/2024 07:42:55 14 7-15 (mmol /L) Final Glucose 09/12/2024 07:42:55 168 Above high normal 70 -120 (mg/dL) Final Albumin 09/12/2024 07:42:55 4.4 3.8-5.0 (g /dL) Final AST (Aspartate aminotransferase) 09/12/2024 07:42:55 20 10-50 (U/L) Fin al Alk Phos 09/12/2024 07:42:55 71 35-130 (U/ L) Final Bilirubin, Total 09/12/2024 07:42:55 0.5 <=1 .2 (mg/dL) Final Calcium 09/12/2024 07:42:55 10.0 8.4-10.2 ( mg/dL) Final Protein 09/12/2024 07:42:55 7.1 6.0-8.3 (g /dL) Final ALT (Alanine aminotransferase) 09/12/2024 07:42:55 26 10-50 (U/L) Donovan cadet Performing Location LABORATORY [facility] [place] - [address] [facility] [id number]
--- OUTSIDE RECORDS SUMMARY | 2024-11-14 19:56 | External Medical Summary ---
Author Name Unknown Address Unknown Organization [id number]:LABORATORY [facility] [place] - [address] [place] [address] Laboratory Report Ordering Provider Test Date Status ANGELICA RICHARDSON 09/12/2024 07:42:55 Final Observation Date Value Abnormality Reference (Units ) Status Triglyceride 09/12/2024 07:42:55 400 Above high normal <=174 (mg/dL) Final Triglyceride Reference Range s (mg/dL):
<150 Acceptable
150-174 Borderline high
175-499 High
>=500 Very high Cholesterol 09/12/2024 07:42:55 114 <200 (mg /dL) Final Total Cholesterol Reference Ranges (mg/dL):
<200 Desirable
200-239 Borderline high
>=240 High HDL 09/12/2024 07:42:55 32 Below low normal >39 (mg/dL) Final HDL Cholesterol Reference Ra nges (mg/dL):
>=60 High (Desirable)
<50 Low (Undesirable) For Females
<40 Low (Undesirable) For Males NON-HDL CHOLESTEROL 09/12/2024 07:42:55 82 <=159 (mg/dL) Final Non-HDL Cholesterol Referenc e Range (mg/dL):
<100 Target level for high risk ASCVD patient
<130 Optimal for general population
130-159 Near optimal for general population
160-189 Borderline High
190-219 High
>=220 Very High Performing Location LABORATORY [facility] - [address] [place] [address]
--- OUTSIDE RECORDS SUMMARY | 2024-11-14 19:56 | External Medical Summary | Summary of Care ---
Author Name Unknown Organization [facility] Address [address] [place] [address] Phone [phone] Care Team Providers Care General Road Supervisor Name Role Phone Hector Lubin MD Primary Care Provider [phone] Reason for Visit * Reason Comments Outpatient Testing Encounter Details Date Type Department Care Team (Late st Contact Info) Description 09/12/2024 7:40 AM EST Laboratory Laboratory, [facility] [address] [place] [phone] [facility] [address] [place] [address] Type 2 diabetes mellitus with hemoglobin A1c goal of less than 7.0% (HCC); Encounter for long-term (current) use of medications; Screening for prostate cancer; Dyslipidemia Allergies Active Allergy Reactions Criticality Noted Date Comments Penicillins Hives 04/04/2013 documented as of this encounter (statuses as of 09/12/2024) Medications B-12 500 MCG PO TABS 1 [...] of less than 7.0% (HCC) Twice daily Dx E11.9 100 Strip 5 07/06/20 16 Active Glucose Blood (ONETOUCH VERIO) STRPIndications:Ty pe 2 diabetes mellitus with hemoglobin A1c goal of less than 7.0% ([facility]) Twice daily 100 Strip 5 08/29/19 17 Active PEG 6702-BDj-IdChx-NaC l-NaSulf 236 GM Oral Solution Reconstituted Please [...] Additional Information Patient not taking.Reported on 08/31/2024 Aspirin 81 MG Oral Tablet ChewableIndication s: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 90 Tablet 3 12/02/19 24 Active Trulicity 1.5 MG/0.5ML Subcutaneous Solution Auto-injector (Dulaglutide) INJECT THE CONTENTS OF 1 SYRINGE UNDER THE SKIN ONCE A WEEK 6 mL 1 07/01/20 24 Active Atorvastatin Calcium 40 MG Oral Tablet (Lipitor)Indicatio ns:Dyslipidemia Take 1 Tablet by mouth in the morning. 90 Tablet 09/08/19 25 Active Gabapentin 300 MG Oral Capsule (Neurontin)Indicat ions:Diabetic polyneuropathy associated with type 2 diabetes mellitus (HCC) TAKE ONE CAPSULE BY MOUTH TWICE A DAY AND TWO CAPSULES AT BEDTIME 360 Capsule 09/08/19 25 Active Empagliflozin 25 MG Oral Tablet (Jardiance) Take 1 Tablet by mouth in the morning. 90 Tablet 09/08/19 25 Active metFORMIN HCl 1000 MG Oral Tablet (Glucophage)Indica tions:Type 2 diabetes mellitus with hemoglobin A1c goal of less than 7.0% ([facility]) Take 1 Tablet by mouth 2 times a day with morning and evening meals. 180 Tablet 09/08/19 25 Active documented as of this encounter (statuses as of 09/12/2024) Active Problems Problem Noted Date Diagnosed Date Acute right RESIDENTIAL GLAZIER stroke 07/16/2022 Type 2 diabetes mellitus wit h hemoglobin A1c goal of less than 7.0% Overview (11/27/2015): ICD-10 update of inactive term Dyslipidemia Neuropathy, diabetic documented as of this encounter (statuses as of 09/12/2024) Resolved Problems Problem Noted Date Diagnosed Date Resolved Date Allergic rhinitis 05/08/2021 04/13/2022 Depression 04/13/2022 Vitamin D deficiency 022 documented as of this encounter (statuses as of 09/12/2024) Immunizations Name Administration Dates Next Due Pneumococcal [...] No 04/09/2023 Does the household have a [facility] source of income? (Household - for ages [...] 18 years and over) Not on file Are you (or your family) yulia eless [...] on file documented as of this encounter Plan of Treatment Upcoming Encounters Date Type Department Care Team (Late st Contact Info) Description 10/26/2024 4:00 PM EDT Office Visit [facility] [place] [address] [phone] Hector Lubin MD [address] [address] 12/19/2024 3:00 PM EDT Office Visit Ophthalmology, [facility] [address] [address] Pal Salvador DO [address] [address] Pending Results Name Type Priority Associated Diagnoses Date /Time HEMOGLOBIN A1C Lab Routine Type 2 diabetes mellitus with hemoglobin A1c goal of less than 7.0% ([facility]) 09/12/2024 7:42 AM EST VITAMIN B12 Lab Routine Encounter for long-term (current) use of medications 09/12/2024 7:42 AM EST PSA Lab Routine Screening for prostate cancer 09/12/2024 7:42 AM EST LIPID PANEL WITH DIRECT LDL IF TG IS HIGH Lab Routine Dyslipidemia 09/12/2024 7:42 AM EST COMPREHENSIVE METABOLIC PANEL Lab Routine Type 2 diabetes mellitus with hemoglobin A1c goal of less than 7.0% ([facility]) Dyslipidemia 09/12/2024 7:42 AM EST ALBUMIN / CREATININE RATIO, URINE Lab Routine Type 2 diabetes mellitus with hemoglobin A1c goal of less than 7.0% ([facility]) 09/12/2024 7:42 AM EST Scheduled Procedures Name Priority Associated Diagnoses Date/Ti [...] 07/31/2017, Additional history exists B-12 04/09/2024 04/09/2023, 060 01/2022, 03/18/2021, Additional history exists Diabetic Foot Exam 04/09/2024 04/09/2023, 1 09/10/2020, 09/12/2020, Additional history exists GFR 04/09/2024 04/09/2023, 0 01/2022, 03/18/2021, Additional history exists HbA1c 04/15/2024 10/14/2023, 0 01/2023, 01/07/2022, Additional history exists Diabetic Eye [...] this encounter Medical Devices Implanted Type Area Tripe Washer Device Identifier Shelf Expiration Date Model / Serial / Lot Lens Intraoc 21.0 - [id number] - [id number] Implanted:Qty: 1 on 06/18/2021 by Joaquín Lieberman MD at OR [facility] Right: Eye [employer] 03/02/2026 [id number] / [id number] / [id number] Lens Intraoc 21.5 - [id number] - [id number] Implanted:Qty: 1 on 06/25/2021 by Joaquín Lieberman MD at OR [facility] Left: Eye [employer]OM[employer] 03/02/2026 [id number] / [id number] / documented as of this encounter Visit Diagnoses Diagnosis Type 2 diabetes mellitus with hemoglobin A1c goal of less than 7.0% (HCC) Encounter for long-term (current) use of medications Encounter for long-term (current) use of other medications Screening for prostate cancer Special screening for malignant neoplasm of prostate Dyslipidemia Other and unspecified hyperlipidemia documented in this encounter Care Teams General Road Supervisor Relationship Specialty Start Date End Date Hector Lubin MD PCP - General Family Medicine 02/27/14 documented as of this encounter
--- OUTSIDE RECORDS SUMMARY | 2024-11-14 19:56 | External Medical Summary ---
Author Name Unknown Address Unknown Organization [id number]:LABORATORY [facility] - [address] [place] [address] Laboratory Report Ordering Provider Test Date Status SCOTT RICHARDSONTERRY 09/12/2024 07:42:55 Final Observation Date Value Abnormality Reference (Units ) Status HbA1C 09/12/2024 07:42:55 7.5 Above high normal 4. 0-5.6 (%) Final The use of HbA1c to monitor glycemic status is based on normal hemoglobin and HbA composition. This test should not be used in patients with abnormal hemoglobin that affects the half life of the red blood cell or the in vivo glycation rates. Glucose, estimated average 09/12/2024 07:42:55 169 Above high normal <126 (mg/dL) Fin al Performing Location LABORATORY [facility] [place] - [address] [place] [address]
--- OUTSIDE RECORDS SUMMARY | 2024-11-14 19:56 | External Medical Summary ---
Author Name Unknown Address Unknown Organization [id number]:LABORATORY [facility] [place] - [address] [place] [address] Laboratory Report Ordering Provider Test Date Status ANGELICA RICHARDSON 09/12/2024 07:42:55 Final Observation Date Value Abnormality Reference (Units ) Status Vitamin B12 09/12/2024 07:42:55 [phone] (pg/mL) Final Performing Location LABORATORY [facility] - [address] [place] [address]
--- OUTSIDE RECORDS SUMMARY | 2024-11-14 19:56 | External Medical Summary ---
Author Name Unknown Address Unknown Organization [id number]:LABORATORY [facility] - [address] [facility] [address] Laboratory Report Ordering Provider Test Date Status SCOTT RICHARDSONTERRY 09/12/2024 07:42:55 Final Normal: <30 mg/g creatinine< br/>High: 30-300 mg/g creatinine
Very High: >300 mg/g creatinine
Nephrotic: >2200 mg/g creatinine Observation Date Value Abnormality Reference (Units ) Status Albumin, Urine 09/12/2024 07:42:55 <1.20 (mg/dL) Final Creatinine, Urine 09/12/2024 07:42:55 81 (mg/dL) Final Albumin/Creatinine [Mass Ratio] in Urine 09/12/2024 07:42:55 <15 <30 (mg/g Creat) Final Performing Location LABORATORY [facility] - [address] [place] [address]
--- OUTSIDE RECORDS SUMMARY | 2024-11-14 19:56 | External Medical Summary | Summary of Care ---
Author Name Unknown Organization [facility] Address [address] [place] [address] Phone [phone] Care Team Providers Care Safety Compliance Specialist Name Role Phone Hector Lubin MD Primary Care Provider [phone] Reason for Visit * Reason Comments Follow Up Pt states that he is here for a 6 month follow up. Pt states that he needs a refill on Econazole nitrate cream. Encounter Details Date Type Department Care Team (Late st Contact Info) Description 11/09/2024 5:40 PM EDT Office Visit [facility] [address] [place] [phone] Hector Lubin MD [address] [place] [address] Type 2 diabetes mellitus with hemoglobin A1c goal of less than 7.0% ([facility])*; Screening for depression Allergies Active Allergy Reactions Criticality Noted Date Comments Penicillins Hives 04/04/2013 documented as of this encounter (statuses as of 11/10/2024) Medications B-12 500 MCG PO TABS 1 [...] 100 Strip 5 08/29/19 17 Active PEG 9408-USo-MeUkb-NaC l-NaSulf 236 GM Oral Solution Reconstituted Please [...] Active Additional Information Patient not taking.Reported on 11/09/2024 Aspirin 81 MG Oral Tablet ChewableIndication s: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 (HCC) Take 1 Tablet by mouth [...] as of this encounter (statuses as of 11/10/2024) Active Problems Problem Noted Date Diagnosed Date 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 07/16/2022 Type 2 diabetes mellitus wit h hemoglobin A1c goal of less than 7.0% Overview (11/27/2015): ICD-10 update of inactive term Dyslipidemia Neuropathy, diabetic documented as of this encounter (statuses as of 11/10/2024) Resolved Problems Problem Noted Date Diagnosed Date Resolved Date Allergic rhinitis 05/08/2021 04/13/2022 Depression 04/13/2022 Vitamin D deficiency 022 documented as of this encounter (statuses as of 11/10/2024) Immunizations Name Administration Dates Next Due Pneumococcal Polysaccharide PPV23 (Pneumovax) Seasonal Influenza Virus Vac cine, Unspecified Formulation 07/11/2015 Seasonal Influenza, Quadrivalent, No Preserve, I M 07/11/2015 TDAP (age 10 and older)(Boostrix) 01/31/2014 documented as of this encounter Social History Tobacco Use Types Packs/Day Years Used Date Smoking Tobacco: Never Smokeless Tobacco: Never Tobacco Cessation:Counseling Given: Not Answered Comments:No passive smoke exposure Alcohol Use Standard Drinks/Week Comments No 0 (1 standard drink = 0.6 oz pur e alcohol) very rare PHQ-2 Answer Date Recorded PHQ Adult Total Score 0 11/09/2024 Hunger Vital Sign Answer Date Recorded Within the past 12 months, y ou worried that your food would run out before you got the money to buy more. Never true 11/07/19 25 Within the past 12 months, t he food you bought just didn't last and you didn't have money to get more. Never true 11/06/2024 Childcare Answer Date Recorded Do you feel overwhelmed with taking care of a child, family member or friend? No 11/06/2024 Does your family need help f inding childcare? (Household - for ages 0-17 years) Not on file 11/06/2024 Clothing Answer Date Recorded Have you been unable to get clothing when it was really needed? No 11/06/2024 Is your family able to get c lothes or diapers when needed? (Household - for ages 0-17 years) Not on file 11/06/2024 Personal Safety Answer Date Recorded Do you feel unsafe or have concerns for your saf ety? No 11/06/2024 Do you have concerns for you r family's safety? (Household - for ages 0-17 years) Not on file 11/06/2024 Utilities Answer Date Recorded Do you have trouble paying y our heating, water, or electric bill? No 11/06/2024 Is your family able to pay t he heat, water, or electric bill? (Household - for ages 0-17 years) Not on file 11/06/2024 Does your family have access to good internet? (Household - for ages 0-17 years) Not on file 11/06/2024 Employment Status Answer Date Recorded Are you unemployed or without regular income? No 11/06/2024 Does the household have a re gular source of income? (Household - for ages 0-17 years) Not on file 11/06/2024 Social Connections Answer Date Recorded How often do you feel lonely or isolated from th ose around you? Never 11/06/2024 Financial Resource Strain Answer Date R ecorded Do you have any trouble payi ng for your medications, or do you think you might in the future? No 11/06/2024 Does your family have troubl e paying for medicine? (Household - for ages 0-17 years) Not on file 11/06/2024 Transportation Needs Answer Date Record ed Do you have trouble getting a ride to medical visits or work? (Adult - for ages 18 years and over) Not on file 11/06/2024 Does your family have a hard time getting a ride to doctors visits? (Household - for ages 0-17 years) Not on file 11/06/2024 Has lack of transportation k ept you from medical appointments, meetings, work, or from getting things needed for daily living? Check all that apply. No 11/06/2024 Do you (or your family) have trouble finding or paying for a ride (transportation)? (Household - for ages 0-17 years) Not on file 11/06/2024 Housing Stability Answer Date Recorded Do you currently live in a s helter or have no steady place to sleep at night? No 11/06/2024 Do you think you are at risk of becoming homeless? (Adult - for ages 18 years and over) Not on file 11/06/2024 Does your family worry about paying for your home or becoming homeless? (Household - for ages 0-17 years) Not on file 0 11/06/2024 Are you homeless or worried that you might be in the future? No 11/06/2024 Are you (or your family) yulia eless [...] ages 0-17 years) Not on file 04/09/2023 Food Insecurity Answer Date Recorded Within the past 12 months, y ou worried that your food would run out before you got the money to buy more. Never true 11/07/19 25 Within the past 12 months, t he food you bought just didn't last and you didn't have money to get more. Never true 11/06/2024 Do you need food for this week? No 11/06/2024 Sex and Gender Information Value Date Recorded Sex Assigned at Male 08/18/2019 8:00 AM EST Legal Sex Male 2:48 PM EDT Gender Identity Male 08/18/2019 8:00 AM EST Sexual Orientation Straight 08/18/2019 8: 00 AM EST Occupation Industry Job Start Date Job End Date Not on file Not on file Not on file Not on file documented as of this encounter Last Filed Vital Signs Vital Sign Reading Time Taken Comments Blood Pressure 169/76 11/09/2024 5:08 PM EDT Pulse 90 11/09/2024 5:08 PM EDT Temperature 36.1 °C (96.9 °F) 11/09/2024 5:08 PM ED T Respiratory Rate 16 11/09/2024 5:08 PM EDT Oxygen Saturation 98% 11/09/2024 5:08 PM EDT Inhaled Oxygen Concentration - - Weight 91 kg (200 lb 9.6 oz) 11/09/2024 5:08 PM EDT Height 177.8 cm (5' 10") 11/09/2024 5:08 PM EDT Body Mass Index 28.78 11/09/2024 5:08 PM EDT documented in this encounter Progress Notes * Hector Lubin MD - 11/09/2024 8:33 PM EDT Images from the original note were not included. Subjective Hector Márquez is a 64 year old male that presents for Follow Up (Pt states that he is here for a 6 month follow up. Pt states that he needs a refill on Econazole nitrate cream. ) History of Present Illness The patient, a 64-year-old with a history of diabetes, cholesterol, diabetic neuropathy, and a previous stroke, presents with itching in the ears and a recent skin issue on the foot. The patient's blood pressure is slightly elevated compared to previous readings, but he attributes this to having a hard day. The patient's weight has remained stable at 200 pounds. The patient reports a previous issue with small bumps on the back, side, and belly that bled when rubbed. The bumps were small and hard, and the patient could not see them but could feel them. The issue lasted for about a month and a half and has since resolved. The patient's current medications include Trulicity, metformin, Jardiance, atorvastatin, baby aspirin, and alpha lipoic acid. The patient has been taking alpha lipoic acid for about 13 years and believes it has helped control his neuropathy. The patient is due for a tetanus shot and a pneumonia shot but declines both. The patient also mentions a recent lab work that showed a slight increase in his A1c from 7.4 to 7.5 and high triglycerides at 400. The patient's LDL cholesterol is well under the goal of 70. Objective BP 169/76 | Pulse 90 | Temp 96.9 °F (36.1 °C) (Tympanic) | Resp 16 | Ht 5' 10" (1.778 m) | Wt 200lb 9.6 oz (91 kg) | SpO2 98% | BMI 28.78 kg/m² | BSA 2.12 m² Physical Exam VITALS: BP- 169/76 MEASUREMENTS: Weight- 200. HEENT: Flaking, dry skin in ear canal, worse on one side. CHEST: Lungs clear to auscultation bilaterally. CARDIOVASCULAR: Heart regular rate and rhythm. EXTREMITIES: No ankle edema bilaterally. SKIN: Skin on big toe with abrasion, no erythema, no purulent drainage, no lymphangitis, no infection signs. Results LABS Hemoglobin A1c: 7.5% (09/12/2024) GFR: >90 (09/12/2024) Triglycerides: 400 mg/dL (09/12/2024) HDL: Low (09/12/2024) LDL: 40 mg/dL (09/12/2024) DIAGNOSTIC Colonoscopy: Normal (2020) Assessment and Plan Assessment & Plan Type 2 Diabetes Mellitus A1c increased to 7.5, indicating suboptimal control. Weight management crucial for glycemic control. Current medications: Metformin, Jardiance, Trulicity. Compliance noted. - Order hemoglobin A1c test in mid-January. - Encourage weight loss to improve glycemic control. Dyslipidemia Triglycerides elevated at 400 mg/dL, likely due to suboptimal diabetes control. LDL well controlledat 40 mg/dL. HDL low, chronic issue. On Atorvastatin. - Repeat lipid profile in September 2025. - Advise dietary modifications to reduce triglycerides, including limiting fats and simple sugars. Diabetic Neuropathy Symptoms well controlled with Alpha-lipoic acid and Cinnamon. Significant improvement reported. Hypertension Blood pressure elevated at 169/76 mmHg, possibly situational. Foot Lesion Blister-like lesion on foot, possibly from trauma. No infection signs, but requires monitoring due to diabetes. - Apply triple antibiotic ointment (Neosporin). - Monitor for signs of infection, such as redness or streaking. - Seek medical attention if signs of infection develop. Eczema (Ear Itching) Itching likely due to eczema. Previous hydrocortisone effective. - Apply 1% hydrocortisone cream to the affected area. Eye Discomfort Crusting in right eye, possibly due to dryness or allergies. No conjunctivitis signs. - Use a washcloth to clean the eyes. - Consider using moisturizing eye drops if symptoms persist. General Health Maintenance Due for tetanus booster and pneumonia vaccine, declined at visit. Colonoscopy due in 2025. - Consider tetanus booster and pneumonia vaccine. - Schedule next colonoscopy in 2025. Follow-up Next routine follow-up in six months. Education on tetanus vaccination and aspirin use provided. - Schedule follow-up appointment in six months. - Notify the clinic if tetanus vaccination is desired. - Continue daily aspirin, can be placed in pill box for convenience. Wrap-Up Follow Up: Return in about 6 months (around 05/11/2025). I spent a total of 30-39 minutes (exact time 30 mins) on the date of service in preparation, delivery, and documentation of the care provided to Hector Márquez excluding any time spent in the performance of separately billed services. Text in this note was generated using an [employer] documentation service. I discussed the use of a device to record and summarize our discussion today. All persons present during the encounter consented to its use. documented in this encounter Nursing Notes * Adilene Osborne LPN - 11/09/2024 5:08 PM EDT Hector Márquez is a 64 year old male who presents today for Chief Complaint Patient presents with Follow Up Pt states that he is here for a 6 month follow up .. Pt states that he needs a refill on Econazole nitrate cream. documented in this encounter Plan of Treatment Upcoming Encounters Date Type Department Care Team (Late st Contact Info) Description 12/19/2024 3:00 PM EDT Office Visit Ophthalmology, [facility] [address] [place] [phone] Pal Salvador DO [address] [place] [address] 05/17/2025 5:40 PM EDT [facility] [address] [place] [phone] Hector Lubin MD [address] [facility] [place] [address] Scheduled Orders Name Type Priority Associated Diagnoses Orde r Schedule HEMOGLOBIN A1C Lab Routine Type 2 diabetes mellitus with hemoglobin A1c goal of less than 7.0% (HCC) Expected: 11/09/2024 (Approximate), Expires: 11/09/2025 Scheduled Procedures Name Priority Associated Diagnoses Date/Ti me COLONOSCOPY FLEXIBLE PROXIMAL DIAGNOSTIC Recall History of colon polyps Health Maintenance Due Date Last Done Comments Cologuard 2006 Fecal Occult Blood Test 2006 Sigmoidoscopy 2006 Zoster Vaccines (1 of 2) 2011 Pneumococcal Vaccine: 50+ Years (2 of 2 - PCV) 02/27/2015 02/27/2014 DTap/Tdap Vaccines (2 - Td or Tdap) 02/01/2024 01/31/2014 Diabetic Foot Exam 04/09/2024 04/09/2023, 1 09/10/2020, 09/12/2020, Additional history exists HbA1c 03/12/2025 09/12/2024, 10/01, 04/09/2023, Additional history exists Influenza Vaccine (FLU shot) (Season Ended) 2025 07/11/2015, 07/11/2015 Albumin/Creatinine Ratio 09/12/2025 025, 04/09/2023, 08/09/2020, Additional history exists B-12 09/12/2025 09/12/2024, 090 01/2023, 01/07/2022, Additional history exists GFR 09/12/2025 09/12/2024, 09/0 01/2023, 01/07/2022, Additional history exists Diabetic Eye Exam 10/24/2025 10/24/2024, , 10/30/2022, Additional history exists Depression Screening 11/09/2025 11/09/2024 Colonoscopy 06/14/2026 06/14/2021, 06/03, 06/15/2017, Additional history [...] on patient's age to complete this topic Meningitis B Vaccine (Bexsero/Trumemba) Aged Out No longer eligible based on patient's age to complete this topic documented as of this encounter Medical Devices Implanted Type Area Patient Safety Tech Device Identifier Shelf Expiration Date Model / Serial / Lot Lens Intraoc 21.0 - [id number] - [id number] Implanted:Qty: 1 on 06/18/2021 by Joaquín Lieberman MD at OR [facility] Right: Eye BAUSCH 03/02/2026 [id number] / [id number] / [id number] Lens Intraoc 21.5 - [id number] - [id number] Implanted:Qty: 1 on 06/25/2021 by Joaquín Lieberman MD at OR [facility] Left: Eye BAUSCH 03/02/2026 [id number] / [id number] / documented as of this encounter Visit Diagnoses Diagnosis Type 2 diabetes mellitus with hemoglobin A1c goal of less than 7.0% ([facility])- Primary Screening for depression documented in this encounter Care Teams Safety Compliance Specialist Relationship Specialty Start Date End Date Hector Lubin MD PCP - General Family Medicine 02/27/14 documented as of this encounter
--- OUTSIDE RECORDS SUMMARY | 2024-11-14 19:56 | External Medical Summary | Summary of Care ---
Author Name Unknown Organization [facility] Address [address] [place] [address] Phone [phone] Care Team Providers Care Supervisor Livestock Yard Name Role Phone Hector Lubin MD Primary Care Provider [phone] Encounter Details Date Type Department Care Team (Late st Contact Info) Description 11/11/2024 Orders Only PATIENT PORTAL DO NOT DELETE [id number] Allergies Active Allergy Reactions Criticality Noted Date Comments Penicillins Hives 04/04/2013 documented as of this encounter (statuses as of 11/11/2024) Medications B-12 500 MCG PO TABS 1 [...] 100 Strip 5 08/29/19 17 Active PEG 5890-YTk-BfAob-NaC l-NaSulf 236 GM Oral Solution Reconstituted Please [...] 81 MG Oral Tablet ChewableIndication s:Acute right 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 MARKETING 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 stroke (HCC) Take 1 Tablet by mouth [...] as of this encounter (statuses as of 11/11/2024) Active Problems Problem Noted Date Diagnosed Date Acute right SEARCH MARKETING 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 stroke 07/16/2022 Type 2 diabetes mellitus wit h hemoglobin A1c goal of less than 7.0% Overview (11/27/2015): ICD-10 update of inactive term Dyslipidemia Neuropathy, diabetic documented as of this encounter (statuses as of 11/11/2024) Resolved Problems Problem Noted Date Diagnosed Date Resolved Date Allergic rhinitis 05/08/2021 04/13/2022 Depression 04/13/2022 Vitamin D deficiency 022 documented as of this encounter (statuses as of 11/11/2024) Immunizations Name Administration Dates Next Due Pneumococcal [...] 12/19/2024 3:00 PM EDT Office Visit Ophthalmology, [facility] [address] [place] [phone] Pal Salvador, DO [address] [place] [address] 05/17/2025 5:40 PM EDT Office Visit Family Practice, [facility] [place] [address] [place] [phone] Hector Lubin MD [address] [place] [address] Scheduled Procedures Name Priority Associated Diagnoses Date/Ti [...] 08/09/2020, Additional history exists B-12 09/12/2025 09/12/2024, 09/0 01/2023, 01/07/2022, Additional history exists GFR 09/12/2025 [...] this encounter Medical Devices Implanted Type Area Recreation Aide Device Identifier Shelf Expiration Date Model / Serial / Lot Lens Intraoc 21.0 - [id number] - [id number] Implanted:Qty: 1 on 06/18/2021 by Joaquín Lieberman MD at OR [facility] Right: Eye BAUSCH 03/02/2026 [id number] / [id number] / [id number] Lens Intraoc 21.5 - [id number] - [id number] Implanted:Qty: 1 on 06/25/2021 by Joaquín Lieberman MD at OR [facility] Left: Eye BAUSCH 03/02/2026 [id number] / [id number] / documented as of this encounter Care Teams Supervisor Livestock Yard Relationship Specialty Start Date End Date Hector Lubin MD PCP - General Family Medicine 02/27/14 documented as of this encounter
--- OUTSIDE RECORDS SUMMARY | 2024-11-14 19:56 | External Medical Summary | Summary of Care ---
Author Name Unknown Organization [facility] Address [address] [place] [address] Phone [phone] Care Team Providers Care Aircraft Delivery Checker Name Role Phone Hector Lubin MD Primary Care Provider [phone] Encounter Details Date Type Department Care Team (Late st Contact Info) Description 10/26/2024 Orders Only [facility] [address] [place] [address] Hector Lubin MD [address] [place] [address] Allergies Active Allergy Reactions Criticality Noted Date Comments Penicillins Hives 04/04/2013 documented as of this encounter (statuses as of 10/26/2024) Medications B-12 500 MCG PO TABS 1 [...] 100 Strip 5 08/29/19 17 Active PEG [id number]-UnNyp-NaC l-NaSulf 236 GM Oral Solution Reconstituted Please [...] 81 MG Oral Tablet ChewableIndication s: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) Take 1 Tablet by mouth [...] as of this encounter (statuses as of 10/26/2024) Active Problems Problem Noted Date Diagnosed Date 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 right 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 UTILITY 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 stroke 07/16/2022 Type 2 diabetes mellitus wit h hemoglobin A1c goal of less than 7.0% Overview (11/27/2015): ICD-10 update of inactive term Dyslipidemia Neuropathy, diabetic documented as of this encounter (statuses as of 10/26/2024) Resolved Problems Problem Noted Date Diagnosed Date Resolved Date Allergic rhinitis 05/08/2021 04/13/2022 Depression 04/13/2022 Vitamin D deficiency 022 documented as of this encounter (statuses as of 10/26/2024) Immunizations Name Administration Dates Next Due Pneumococcal [...] Description 11/09/2024 5:40 PM EDT Office Visit [facility] [place] [address] [place] [phone] Hector Lubin MD [address] [place] [address] 12/19/2024 3:00 PM EDT Office Visit Ophthalmology, [facility] [address] [place] [phone] Pal Salvador, [address] [place] [address] Scheduled Procedures Name Priority Associated Diagnoses Date/Ti [...] Vaccine (FLU shot) (#1) 2024 07/11/2015, 07/11/2015 Diabetic Foot Exam 04/09/2024 04/09/2023, 1 09/10/2020, 09/12/2020, Additional history exists Depression Screening 10/13/2024 10/14/2023 HbA1c 03/12/2025 09/12/2024, 10/01, 04/09/2023, Additional history exists Albumin/Creatinine Ratio 09/12/2025 025, 04/09/2023, 08/09/2020, Additional history exists B-12 09/12/2025 09/12/2024, 09/0 01/2023, 01/07/2022, Additional history exists GFR 09/12/2025 09/12/2024, 09/0 01/2023, 01/07/2022, Additional history exists Diabetic Eye Exam 10/26/2025 10/24/2024, , 10/30/2022, Additional history exists Colonoscopy 06/14/2026 06/14/2021, 06/03, 06/15/2017, Additional history [...] this encounter Medical Devices Implanted Type Area Social Work Professor Device Identifier Shelf Expiration Date Model / Serial / Lot Lens Intraoc 21.0 - [id number] - [id number] Implanted:Qty: 1 on 06/18/2021 by Joaquín Lieberman MD at OR [facility] Right: Eye BAUSCH & LOMB 03/02/2026 [id number] / [id number] / [id number] Lens Intraoc 21.5 - [id number] - [id number] Implanted:Qty: 1 on 06/25/2021 by Joaquín Lieberman MD at OR [facility] Left: Eye BAUSCH & LOMB 03/02/2026 [id number] / [id number] / documented as of this encounter Procedures Procedure Name Priority Date/Time Associated Diagnosis Comments DIABETIC EYE EXAM Routine 10/24/2024 documented in this encounter Results * DIABETIC EYE EXAM (10/24/2024) 10/24/2024 us History Per Patient OTHER Final Result OUTSIDE LAB (SEE SCANNED REPORT) documented in this encounter Care Teams Aircraft Delivery Checker Relationship Specialty Start Date End Date Hector Lubin MD PCP - General Family Medicine 02/27/14 documented as of this encounter
--- OUTSIDE RECORDS SUMMARY | 2024-11-14 19:56 | External Medical Summary | Summary of Care ---
Author Name Unknown Organization [facility] Address [address] [place] [address] Phone [phone] Care Team Providers Care Proof Passer Name Role Phone Dylan Lubin MD Primary Care Provider [phone] Reason for Visit * Reason Onset Date Comments Medication Refill 09/07/2024 Encounter Details Date Type Department Care Team (Late st Contact Info) Description 09/07/2024 Refill [facility] [address] [place] [phone] Dylan Lubin MD [address] [place] [address] Type 2 diabetes mellitus with hemoglobin A1c goal of less than 7.0% ([facility]); Dyslipidemia; Diabetic polyneuropathy associated with type 2 diabetes mellitus ([facility]) Allergies Active Allergy Reactions Criticality Noted [...] hemoglobin A1c goal of less than 7.0% ([facility]) Twice daily Dx E11.9 100 Strip 5 07/06/20 16 Active Glucose Blood (ONETOUCH VERIO) STRPIndications:Ty pe 2 diabetes mellitus with hemoglobin A1c goal of less than 7.0% (HCC) Twice daily 100 Strip 5 08/29/19 17 Active PEG 6963-WMa-DxDdd-NaC l-NaSulf 236 GM Oral Solution Reconstituted Please [...] 81 MG Oral Tablet ChewableIndication s:Acute right MACHINE ROPE MAKER stroke (HCC) Take 1 Tablet by mouth [...] evening meals. 180 Tablet 09/08/19 25 Active Atorvastatin Calcium 40 MG Oral Tablet (Lipitor)Indicatio ns:Type 2 diabetes mellitus with hemoglobin A1c goal of less than 7.0% ([facility]),Dyslipidemia TAKE 1 TABLET BY MOUTH ONCE DAILY 90 Tablet 3 08/14/19 24 025 Discontin ued(Refil l) Gabapentin 300 MG Oral Capsule (Neurontin)Indicat ions:Diabetic polyneuropathy associated with type 2 diabetes mellitus (HCC) TAKE ONE CAPSULE BY MOUTH TWICE A DAY AND TWO CAPSULES AT BEDTIME 360 Capsule 3 08/14/19 24 025 Discontin ued(Refil l) Jardiance 25 MG Oral Tablet (Empagliflozin)Ind ications:Type 2 diabetes mellitus with hemoglobin A1c goal of less than 7.0% ([facility]) TAKE 1 TABLET BY MOUTH ONCE DAILY 90 Tablet 3 08/14/19 24 025 Discontin ued(Refil l) metFORMIN HCl 1000 MG Oral Tablet (Glucophage)Indica tions:Type 2 diabetes mellitus with hemoglobin A1c goal of less than 7.0% ([facility]) TAKE 1 TABLET BY MOUTH TWICE DAILY EVERY MORNING AND BEFORE BEDTIME 180 Tablet 06/08/20 24 025 Discontin ued(Refil l) documented as of this encounter (statuses as of 09/08/2024) Active Problems Problem Noted Date Diagnosed Date Acute right MACHINE ROPE MAKER stroke 07/16/2022 Type 2 diabetes mellitus wit [...] encounter Miscellaneous Notes * Telephone Encounter - Ariella Acharya PA-C - 09/08/2024 1:51 PM ESTSigned Prescriptions: Disp Refills Atorvastatin Calcium 40 MG Oral Tablet (Li*90 Tab*0 Sig: Take 1 Tablet by mouth in the morning. Authorizing Provider: DYLAN LUBIN Ordering User: MIMI, SIDDHARTHA Gabapentin 300 MG Oral Capsule (Neurontin) 360 Ca*0 Sig: TAKE ONE CAPSULE BY MOUTH TWICE A DAY AND TWO CAPSULES AT BEDTIME Authorizing Provider: ARIELLA ACHARYA mpagliflozin 25 MG Oral Tablet (Jardiance)90 Tab*0 Sig: Take 1 Tablet by mouth in the morning. Authorizing Provider: DYLAN LUBIN Ordering User: MIMI SIDDHARTHA metFORMIN HCl 1000 MG Oral Tablet (Glucoph*180 Ta*0 Sig: Take 1 Tablet by mouth 2 times a day with morning and evening meals. Authorizing Provider: DYLAN LUBIN Ordering User: SIDDHARTHA LE Refused Prescriptions: Disp Refills Trulicity 1.5 MG/0.5ML Subcutaneous Soluti*6 mL 0 Sig: INJECT THE CONTENTS OF 1 SYRINGE UNDER THE SKIN ONCE A WEEK Refused By: SIDDHARTHA LE Reason for Refusal: Too soon * Telephone Encounter - Annamaria Bray CPhT - 09/08/2024 12:50 PM EST Pending Prescriptions: Disp Refills Gabapentin 300 MG Oral Capsule (Neurontin) 360 Ca*0 Sig: TAKE ONE CAPSULE BY MOUTH TWICE A DAY AND TWO CAPSULES AT BEDTIME Signed Prescriptions: Disp Refills Atorvastatin Calcium 40 MG Oral Tablet (Li*90 Tab*0 Sig: Take 1 Tablet by mouth in the morning. Authorizing Provider: DYLAN LUBIN Ordering Us er: SIDDHARTHA LE Empagliflozin 25 MG Oral Tablet (Jardiance)90 Tab*0 Sig: Take 1 Tablet by mouth in the morning. Authorizing Provider: DYLAN LUBIN Ordering User: MIMISIDDHARTHA metFORMIN HCl 1000 MG Oral Tablet (Glucoph*180 Ta*0 Sig: Take 1 Tablet by mouth 2 times a day with morning and evening meals. Authorizing Provider: DYLAN LUBIN Ordering User: SIDDHARTHA LE Refused Pres criptions: Disp Refills Trulicity 1.5 MG/0.5ML Subcutaneous Soluti*6 mL 0 Sig: INJECT THE CONTENTS OF 1 SYRINGE UNDER THE SKIN ONCE A WEEK Refused By: SIDDHARTHA LE Reason for Refusal: Too soon * Telephone Encounter - Annamaria Bray CPhT - 09/08/2024 12:50 PM EST Received message from [facility] regarding patient needing labs. Call Placed, Pt was agreeable to set up lab appointment. Patient scheduled for 09/12/24. Thank you, Annamaria Bray CphT Sampler Pickup III [facility] 09/08/24 * Telephone Encounter - Yohana Martinez [facility] - 09/08/2024 9:25 AM EST Pending Prescriptions: Disp Refills Gabapentin 300 MG Oral Capsule (Neurontin) 360 Ca*0 Sig: TAKE ONE CAPSULE BY MOUTH TWICE A DAY AND TWO CAPSULES AT BEDTIME Signed Prescriptions: Disp Refills Atorvastatin Calcium 40 MG Oral Tablet (Li*90 Tab*0 Sig: Take 1 Tablet by mouth in the morning. Authorizing Provider: DYLAN LUBIN Ordering Us er: SIDDHARTHA LE Empagliflozin 25 MG Oral Tablet (Jardiance)90 Tab*0 Sig: Take 1 Tablet by mouth in the morning. Authorizing Provider: DYLAN LUBIN Ordering User: SIDDHARTHA LE metFORMIN HCl 1000 MG Oral Tablet (Glucoph*180 Ta*0 Sig: Take 1 Tablet by mouth 2 times a day with morning and evening meals. Authorizing Provider: DYLAN LUBIN Ordering User: SIDDHARTHA LE Refused Pres criptions: Disp Refills Trulicity 1.5 MG/0.5ML Subcutaneous Soluti*6 mL 0 Sig: INJECT THE CONTENTS OF 1 SYRINGE UNDER THE SKIN ONCE A WEEK Refused By: SIDDHARTHA LE Reason for Refusal: Too soon * Telephone Encounter - Siddhartha Le RPh - 09/08/2024 9:14 AM EST Provided 90 days supply with 0 refill(s). Per refill protocol patient should have routine labs on file within past year. Reviewed : AMP report Care Gaps/Health Maintenance medications list for any routine labs typically ordered for this patient. Lab orders placed. Please contact patient to advise of labs ordered for blood draw AND URINE specimen (patient will have to be able to void to provide sample). Recommend patient to fast if able for labs. Patient may still have water and regular medications. Advise to obtain labs before requesting the next refill. After contacting patient, please forward request to PCP due to off protocol medication. Thanks, Siddhartha Le PharmD Clinical Pharmacist [facility] [phone] 09/08/2024, 9:15 AM * Telephone Encounter - Siddhartha Le RPh - 09/08/2024 9:13 AM EST Pending Prescriptions: Disp Refills Atorvastatin Calcium 40 MG Oral Tablet (L*90 Tab*0 Sig: Take 1 Tablet by mouth in the morning. Gabapentin 300 MG Oral Capsule (Neurontin)360 Ca*0 Sig: TAKE ONE CAPSULE BY MOUTH TWICE A DAY AND TWO CAPSULES AT BEDTIME Empagliflozin 25 MG Oral Tablet (Jardianc*90 Tab*0 Sig: Take 1 Tablet by mouth in the morning. metFORMIN HCl 1000 MG Oral Tablet (Glucop*180 Ta*0 Sig: Take 1 Tablet by mouth 2 times a day with morning and evening meals. Refused Prescriptions: Disp Refills Trulicity 1.5 MG/0.5ML Subcutaneous Soluti*6 mL 0 Sig: INJECT THE CONTENTS OF 1 SYRINGE UNDER THE SKIN ONCE A WEEK Refused By: SIDDHARTHA LE Reason for Refusal: Too soon Last Visit: 08/31/2024 (in office), Visit date not found (telemedicine) Next Visit: 10/26/2024 If no future appointments scheduled, and last appointment is greater than a year ago, please schedule patient for a follow-up appointment Last date the medication was ordered: 08/14/23 Pharmacy: [id number] Is this request for a controlled substance? No Urine Drug Screen:No results found for this or any previous visit. Patient Phone Numbers [employer] [phone] Labs: Lab Results Component Value Date/Time CREAT 0.8 04/09/2023 12:02 PM CREAT 1.3 (H) 08/27/2020 03:42 PM POTASSIUM 4.7 04/09/2023 12:02 PM POTASSIUM 3.7 07/19/2020 12:00 AM POTASSIUM 4.6 07/31/2017 07:42 AM TSH 0.58 08/09/2020 10:38 AM LDL 59 04/09/2023 12:02 PM LDL 66 08/09/2020 10:38 AM LDL 50 07/31/2017 07:42 AM LDLCALC 68 03/05/2020 12:00 AM ALT 22 04/09/2023 12:02 PM ALT 19 07/31/2017 07:42 AM HGBA1C 7.4 (H) 10/14/2023 04:12 PM HGBA1C 8.2 (H) 08/09/2020 10:38 AM documented in this encounter Plan of Treatment Upcoming Encounters Date Type Department Care Team (Late st Contact Info) Description 09/12/2024 7:40 AM EST Laboratory Laboratory, [facility] [address] [place] [phone] [facility] [address] [place] [address] 10/26/2024 4:00 PM EDT Office Visit Family Practice, [facility] [place] [address] [place] [phone] Dylan Lubin MD [address] [place] [address] 12/19/2024 3:00 PM EDT Office Visit Ophthalmology, [facility] [address] [place] [address] Pal Salvador DO [address] [place] [address] Scheduled Procedures Name Priority Associated Diagnoses Date/Ti [...] 07/31/2017, Additional history exists B-12 04/09/2024 04/09/2023, 06/01/2022, 03/18/2021, Additional history exists Diabetic Foot Exam 04/09/2024 04/09/2023, 1 09/10/2020, 09/12/2020, Additional history exists GFR 04/09/2024 04/09/2023, 0 01/2022, 03/18/2021, Additional history exists HbA1c 04/15/2024 10/14/2023, 090 01/2023, 01/07/2022, Additional history exists Diabetic Eye [...] this encounter Medical Devices Implanted Type Area Farmworker Vegetable Device Identifier Shelf Expiration Date Model / Serial / Lot Lens Intraoc 21.0 - [id number] - [id number] Implanted:Qty: 1 on 06/18/2021 by Joaquín Lieberman MD at [facility] Right: Eye [employer] 03/02/2026 [id number] / [id number] / [id number] Lens Intraoc 21.5 - [id number] - [id number] Implanted:Qty: 1 on 06/25/2021 by Joaquín Lieberman MD at OR [facility] Left: Eye [employer] 03/02/2026 [id number] / [id number] / documented as of this encounter Visit Diagnoses Diagnosis Type 2 diabetes mellitus with hemoglobin A1c goal of less than 7.0% (HCC) Dyslipidemia Other and unspecified hyperlipidemia Diabetic polyneuropathy associated with type 2 diabetes mellitus (HCC) documented in this encounter Care Teams Proof Passer Relationship Specialty Start Date End Date Dylan Lubin MD PCP - General Family Medicine 02/27/14 documented as of this encounter
--- OUTSIDE RECORDS SUMMARY | 2024-11-14 19:56 | External Medical Summary ---
Author Name Unknown Address Unknown Organization K01:LABORATORY [facility] - [address] [place] [address] Laboratory Report Ordering Provider Test Date Status ANGELICA RICHARDSON 09/12/2024 07:42:55 Final Observation Date Value Abnormality Reference (Units ) Status LDL, (direct) 09/12/2024 07:42:55 40 <=129 (mg/dL) Final LDL Cholesterol Reference Ra nges (mg/dL):
<70 � � Target level for high risk ASCVD patient
<100 � �Optimal for general population
100-129 Near optimal for general population
130-159 Borderline high
160-189 High
>=190 � Very high Performing Location LABORATORY [facility] - [address] [place] [address]
--- OUTSIDE RECORDS SUMMARY | 2024-11-14 19:57 | External Medical Summary | Summary of Care ---
Author Name Unknown Organization [facility] Address [address] [place] [address] Phone [phone] Care Team Providers Care Psychiatric Assistant Name Role Phone Dylan Lubin MD Primary Care Provider [phone] Reason for Visit * Reason Comments eRx-Medication Refill Encounter Details Date Type Department Care Team (Late st Contact Info) Description 06/30/2024 Refill Pharmacy, [place] [address] [place] [address] Dylan Lubin MD [address] [place] [address] Allergies Active Allergy Reactions Criticality Noted Date Comments Penicillins Hives 04/04/2013 documented as of this encounter (statuses as of 07/01/2024) Medications B-12 500 MCG PO TABS 1 TABLET DAILY 014 Active CINNAMON 500 MG PO CAPS 2 tablets daily 014 Active VITAMIN D 1000 UNITS PO CAPSIndications:V itamin D deficiency 1 capsule daily 30 Cap 11 014 Active Alpha-Lipoic Acid 600 MG Capsule One in the am daily Active Glucose Blood (EASY TRAK BLOOD GLUCOSE TEST) STRPIndications:T ype 2 diabetes mellitus with hemoglobin A1c goal of less than 7.0% ([facility]) Twice daily Dx E11.9 100 Strip 5 016 Active Glucose Blood (ONETOUCH VERIO) STRPIndications:T ype 2 diabetes mellitus with hemoglobin A1c goal of less than 7.0% (HCC) Twice daily 100 Strip 5 017 Active PEG 5250-RSg-HeSpy-Na Cl-NaSulf 236 GM Oral Solution Reconstituted Please take according to Colonoscopy prep instructions. 4000 mL 021 Active diphenhydrAMINE HCl 25 MG Oral Tablet (Benadryl) Use 1-2 tablets at onset of suspected allergic reaction. May repeat dose every 4-6 hours as needed 30 Tab 021 Active Loratadine 10 MG Oral Tablet (Claritin) Take 1 tablet daily as needed for allergic nasal symptoms or persistent itchy rash. 34 Tab 5 021 Active Econazole Nitrate 1 % External Cream (Spectazole)Indic ations:Tinea pedis of both feet Apply 2x daily to entire foot/ankle/in between toes/nails until next derm appointment 135 g 2 022 Active Additional Information Patient not taking.Reported on 04/20/2024 Atorvastatin Calcium 40 MG Oral Tablet (Lipitor)Indicati ons:Type 2 diabetes mellitus with hemoglobin A1c goal of less than 7.0% (HCC),Dyslipidemi a TAKE 1 TABLET BY MOUTH ONCE DAILY 90 Tablet 3 024 Active Gabapentin 300 MG Oral Capsule (Neurontin)Indica tions:Diabetic polyneuropathy associated with type 2 diabetes mellitus (HCC) TAKE ONE CAPSULE BY MOUTH TWICE A DAY AND TWO CAPSULES AT BEDTIME 360 Capsule 3 024 Active Jardiance 25 MG Oral Tablet (Empagliflozin)In dications:Type 2 diabetes mellitus with hemoglobin A1c goal of less than 7.0% (HCC) TAKE 1 TABLET BY MOUTH ONCE DAILY 90 Tablet 3 024 Active Aspirin 81 MG Oral Tablet ChewableIndicatio ns: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 90 Tablet 3 024 Active metFORMIN HCl 1000 MG Oral Tablet (Glucophage)Indic ations:Type 2 diabetes mellitus with hemoglobin A1c goal of less than 7.0% (HCC) TAKE 1 TABLET BY MOUTH TWICE DAILY EVERY MORNING AND BEFORE BEDTIME 180 Tablet 024 Active Trulicity 1.5 MG/0.5ML Subcutaneous Solution Auto-injector (Dulaglutide) INJECT THE CONTENTS OF 1 SYRINGE UNDER THE SKIN ONCE A WEEK 6 mL 1 024 Active Trulicity 1.5 MG/0.5ML Subcutaneous Solution Pen-injector (Dulaglutide) INJECT THE CONTENTS OF 1 SYRINGE UNDER THE SKIN ONCE A WEEK 6 mL 1 024 2023 Discontinued documented as of this encounter (statuses as of 07/01/2024) Active Problems Problem Noted Date Diagnosed Date Acute right GRAPHIC 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 (Adult - for ages 18 years and over) Not on file 04/19/2024 Is your family able to pay t he heat, water, or electric bill? (Household - for ages 0-17 years) Not on file 04/19/2024 Does your family have access to good internet? (Household - for ages 0-17 years) Not on file 04/19/2024 Employment Status Answer Date Recorded Are you unemployed or without regular income? No 04/09/2023 Does the household have a [facility] source of income? (Household - for ages 0-17 years) Not on file 04/09/2023 Social Connections Answer Date Recorded How often do you feel lonely or isolated from those around you? (Adult - for ages 18 years and over) Not on file 04/19/2024 Financial Resource Strain Answer Date R ecorded [...] encounter Miscellaneous Notes * Telephone Encounter - Babs Pierson, [facility] - 07/01/2024 7:39 AM ESTSigned Prescriptions: Disp Refills Trulicity 1.5 MG/0.5ML Subcutaneous Soluti*6 mL 1 Sig: INJECT THE CONTENTS OF 1 SYRINGE UNDER THE SKIN ONCE A WEEKAuthorizing Provider: DYLAN LUBNI User: BABS PIERSON documented in this encounter Plan of Treatment Upcoming Encounters Date Type Department Care Team (Late st Contact Info) Description 10/26/2024 4:00 PM EDT Office Visit [facility] [address] [place] [phone] Dylan Lubin MD [address] [address] Scheduled Procedures Name Priority Associated Diagnoses Date/Ti me COLONOSCOPY FLEXIBLE PROXIMAL DIAGNOSTIC Recall History of colon polyps Health Maintenance Due Date Last Done Comments Cologuard 2006 Fecal Occult Blood Test 2006 Sigmoidoscopy 2006 Zoster Vaccines (1 of 2) 2011 Pneumococcal Vaccine: Pediatrics (0 to 5 Years) and At-Risk Patients (6 to 64 Years) (2 of 2 - PCV) 02/27/2015 02/27/2014 DTap/Tdap Vaccines (2 - Td or Tdap) 02/01/2024 01/31/2014 Influenza Vaccine (FLU shot) (#1) 2024 07/11/2015, 07/11/2015 Albumin/Creatinine Ratio 04/09/2024 023, 08/09/2020, 07/31/2017, Additional history exists B-12 04/09/2024 04/09/2023, 0 01/2022, 03/18/2021, Additional history exists Diabetic Foot [...] this encounter Medical Devices Implanted Type Area Cement Mason Helper Device Identifier Shelf Expiration Date Model / Serial / Lot Lens Intraoc 21.0 - [id number] - [id number] Implanted:Qty: 1 on 06/18/2021 by Joaquín Lieberman MD at OR [facility] Right: Eye [employer] 03/02/2026 [id number] / [id number] / [id number] Lens Intraoc 21.5 - [id number] - [id number] Implanted:Qty: 1 on 06/25/2021 by Joaquín Lieberman MD at OR [facility] Left: Eye [employer] 03/02/2026 [id number] / [id number] / documented as of this encounter Care Teams Psychiatric Assistant Relationship Specialty Start Date End Date Dylan Lubin MD [address] [place] [address] PCP - General Family Medicine 02/27/14 documented as of this encounter
--- OUTSIDE RECORDS SUMMARY | 2024-11-14 19:57 | External Medical Summary | Summary of Care ---
Author Name Unknown Organization [facility] Address [address] [place] [address] Phone [phone] Care Team Providers Care Boilermaker Helper Name Role Phone Hector Lubin MD Primary Care Provider [phone] Reason for Visit * Precert (Within 10 days (routine)) - Authorized Specialty Diagnoses / Procedures Referred By Bernardo valentine Referred To Contact Ophthalmology Diagnoses Type 2 diabetes mellitus with mild nonproliferative diabetic retinopathy with macular edema, bilateral (HCC) Procedures KS BEVACIZUMAB INJECTION KS INTRAVITREAL NJX PHARMACOLOGIC AGT SPX Pal Salvador DO [address] [place] [address] Phone: tel: fax: Referral ID Status Reason Start Date Expiration Date V isits Requested Visits Authorized [id number] Authorized Precert 04/07/2023 08/02/[phone] Encounter Details Date Type Department Care Team (Late st Contact Info) Description 08/18/2024 3:15 PM EST Office Visit Ophthalmology, [facility] [address] [place] [address] Pal Salvador DO [address] [place] [address] 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, unspecified whether alf insulin use (HCC)* Allergies Active Allergy Reactions Criticality Noted Date Comments Penicillins Hives 04/04/2013 documented as of this encounter (statuses as of 08/18/2024) Medications B-12 500 MCG PO TABS 1 [...] 100 Strip 5 08/29/19 17 Active PEG [id number]-NaC l-NaSulf 236 GM Oral Solution Reconstituted Please [...] 04/20/2024 Atorvastatin Calcium 40 MG Oral Tablet (Lipitor)Indicatio ns:Type 2 diabetes mellitus with hemoglobin A1c goal of less than 7.0% (HCC),Dyslipidemia TAKE 1 TABLET BY MOUTH ONCE DAILY 90 Tablet 3 08/14/19 24 Active Gabapentin 300 MG Oral Capsule (Neurontin)Indicat ions:Diabetic polyneuropathy associated with type 2 diabetes mellitus (HCC) TAKE ONE CAPSULE BY MOUTH TWICE A DAY AND TWO CAPSULES AT BEDTIME 360 Capsule 3 08/14/19 24 Active Jardiance 25 MG Oral Tablet (Empagliflozin)Ind ications:Type 2 diabetes mellitus with hemoglobin A1c goal of less than 7.0% (HCC) TAKE 1 TABLET BY MOUTH ONCE DAILY 90 Tablet 3 08/14/19 24 Active Aspirin 81 MG Oral Tablet ChewableIndication s:Acute right STEWARD/STEWARDESS SECOND CLASS stroke (HCC) Take 1 Tablet by mouth in the morning. 90 Tablet 3 12/02/19 24 Active metFORMIN HCl 1000 MG Oral Tablet (Glucophage)Indica tions:Type 2 diabetes mellitus with hemoglobin A1c goal of less than 7.0% (HCC) TAKE 1 TABLET BY MOUTH TWICE DAILY EVERY MORNING AND BEFORE BEDTIME 180 Tablet 06/08/20 24 Active Trulicity 1.5 MG/0.5ML Subcutaneous Solution Auto-injector (Dulaglutide) INJECT THE CONTENTS OF 1 SYRINGE UNDER THE SKIN ONCE A WEEK 6 mL 1 07/01/20 24 Active documented as of this encounter (statuses as of 08/18/2024) Active Problems Problem Noted Date Diagnosed Date Acute right STEWARD/STEWARDESS SECOND CLASS stroke 07/16/2022 Type 2 diabetes mellitus wit h hemoglobin A1c goal of less than 7.0% Overview (11/27/2015): ICD-10 update of inactive term Dyslipidemia Neuropathy, diabetic documented as of this encounter (statuses as of 08/18/2024) Resolved Problems Problem Noted Date Diagnosed Date Resolved Date Allergic rhinitis 05/08/2021 04/13/2022 Depression 04/13/2022 Vitamin D deficiency 022 documented as of this encounter (statuses as of 08/18/2024) Immunizations Name Administration Dates Next Due Pneumococcal [...] on file documented as of this encounter Progress Notes * Pal Salvador, DO - 08/18/2024 3:15 PM EST [facility] [place] Nursing Notes: Lori Pope TECH 08/18/24 1518 Signed Hector Márquez is a 64 year old year old male who presents for Mild NPDR OU. Last Office Visit: 09/16/2023 (in office), Visit date not found (telemedicine) Patient currently states no change in vision. Are you diabetic? Yes. Do you check your blood sugars daily? NO. Last Hemoglobin A1C: Lab Results Component Value Date/Time HGBA1C 7.4 (H) 10/14/2023 04:12 PM HGBA1C 6.9 (H) 04/09/2023 12:02 PM HGBA1C 7.0 (H) 01/07/2022 07:52 AM HGBA1C 8.2 (H) 08/09/2020 10:38 AM HGBA1C 7.4 (H) 03/05/2020 12:00 AM HGBA1C 7.0 (H) 09/21/2019 12:00 AM HGBA1C 6.7 (H) 07/31/2017 07:42 AM HGBA1C 6.5 (H) 03/02/2017 02:[address]? yes OCT, fundus image(s) of both eyes acquired and filed/scanned into chart. Base Eye Exam Visual Acuity (Snellen - Linear) Right Left Dist sc 20/40 -2 20/25 +2 Tonometry (Tonopen, 3:17 PM) Right Left Pressure 18 16 Pupils Pupils Shape React APD Right PERRL Round Brisk None Left PERRL Round Brisk None Visual Goodwin (Counting fingers) Right Left Full Full Extraocular Movement Right Left Full Full Neuro/Psych Oriented x3: Yes Mood/Affect: Normal Dilation Both eyes: 0.5% Proparacaine @ 3:15 PM Dilation #2 Both eyes: 1.0% Mydriacyl, 2.5% Phenylephrine @ 3:17 PM Dilation Comments Patient cautioned that effects of dilation may last 2-7 hours dependant upon individual reaction. It was discussed that driving while dilated is not recommended. EXTERNAL: The ocular adnexae are unremarkable. 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 Mild Nonproliferative Diabetic Retinopathy OU -h/o CIDME OD - s/p Avastin (05-21-21)--improved - >3 years since last injection -recommend HgbA1C <7, BP and lipid control. -monitor 2. Mild Epiretinal Membrane OU -not visually significant 3. Pseudophakia OU - Dr. Lieberman OD: 06/18/21 OS: 06/25/21 -stable 4. H/o LASIK OU -[address] [employer] [place] -stable F/u 4 months - dilate and OCT OU; WF OU Pal Salvador DO CC: Josse Gunderson, OD CC: PCP: Hector Lubin MD documented in this encounter Nursing Notes * Lori Pope TECH - 08/18/2024 3:12 PM EST Hector Márquez is a 64 year old year old male who presents for Mild NPDR OU. Last Office Visit: 09/16/2023 (in office), Visit date not found (telemedicine) Patient currently states no change in vision. Are you diabetic? Yes. Do you check your blood sugars daily? NO. Last Hemoglobin A1C: Lab Results Component Value Date/Time HGBA1C 7.4 (H) 10/14/2023 04:12 PM HGBA1C 6.9 (H) 04/09/2023 12:02 PM HGBA1C 7.0 (H) 01/07/2022 07:52 AM HGBA1C 8.2 (H) 08/09/2020 10:38 AM HGBA1C 7.4 (H) 03/05/2020 12:00 AM HGBA1C 7.0 (H) 09/21/2019 12:00 AM HGBA1C 6.7 (H) 07/31/2017 07:42 AM HGBA1C 6.5 (H) 03/02/2017 02:[address]? yes OCT, fundus image(s) of both eyes acquired and filed/scanned into chart. 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, unspecified whether alf insulin use (HCC) Ordered: 08/18/2024 FUNDUS PHOTOGRAPHY Procedures Routine 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, unspecified whether alf insulin use (HCC) Ordered: 08/18/2024 Scheduled Procedures Name Priority Associated Diagnoses Date/Ti [...] 09/12/2020, Additional history exists GFR 04/09/2024 04/09/2023, 060 01/2022, 03/18/2021, Additional history exists HbA1c 04/15/2024 [...] this encounter Medical Devices Implanted Type Area Senior Data Integration Developer Device Identifier Shelf Expiration Date Model / Serial / Lot Lens Intraoc 21.0 - [id number] - [id number] Implanted:Qty: 1 on 06/18/2021 by Joaquín Lieberman MD at [place] [facility] Right: Eye [employer] 03/02/2026 [id number] / [id number] / [id number] Lens Intraoc 21.5 - [id number] - [id number] Implanted:Qty: 1 on 06/25/2021 by Joaquín Lieberman MD at [place] [facility] Left: Eye [employer] 03/02/2026 [id number] / [id number] / documented as of this encounter Visit Diagnoses Diagnosis 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
[2024-11-14] MEDS: GABAPENTIN 600 MG TAB PO SCH (20:05)
[2024-11-14] MEDS: INSULIN ASPART PER UNIT CHARGE SC SCH (21:07)
[2024-11-14] MEDS: GADOBUTROL 65ML VIAL IV ONE (22:51)
--- NOTE | 2024-11-15 02:36 | Magnetic Resonance Report ---
Exam(s): MRI HEAD W/WO Contrast IV Amt: 9ml gadavist EXAM: MR Head Without and With Intravenous Contrast CLINICAL HISTORY: Reason for exam: strokelike symptoms. TECHNIQUE: Magnetic resonance images of the head/brain without and with intravenous contrast in multiple planes. CONTRAST: Patient received 9ml gadavist of IV contrast COMPARISON: Prior head CT from November 14, 2024. FINDINGS: Brain: There is no acute ischemic injury of the right capsule without evidence of hemorrhagic transformation. There is a late subacute ischemic injury of the periventricular white matter left temporal lobe with mild patchy enhancement. There is a remote ischemic injury of the right anterior capsule. Mild nonspecific white matter changes. The dural venous sinuses are patent. Loss of the normal left vertebral artery flow-void concerning for slow flow blood flow. Ventricles: Unremarkable. No ventriculomegaly. Bones/joints: Unremarkable. No acute fracture. Sinuses: Chronic ethmoid sinusitis. No acute sinusitis. Mastoid air cells: Unremarkable as visualized. No mastoid effusion. Orbits: Bilateral lens replacements. IMPRESSION: There is an acute ischemic injury of the right capsule Without of Hemorrhagic Transformation. There Is a Late Subacute Ischemic Injury of the Periventricular White Matter in the Left Temporal Lobe. Electronically signed by: Margaux Quiroz MD 11/15/24 02:36 AM
[2024-11-15 05:44] LABS: Basophils # (auto) 0.04 K/uL (0.00-0.20); Basophils % (auto) 0.5 %; Eosinophils # (auto) 0.14 K/uL (0.00-0.50); Eosinophils % (auto) 1.9 %; Hematocrit (blood only) 46.5 % (42.0-52.0); Hemoglobin 15.8 g/dl (14.0-18.0); Immature Granulocytes # (auto) 0.03 K/uL (0.01-0.20); Immature Granulocytes % (auto) 0.4 %; Lymphocytes # (auto) 2.04 K/uL (1.20-3.40); Lymphocytes % (auto) 27.8 %; Mean Corpuscular Hemoglobin 30.1 pg (25.0-34.0); Mean Corpuscular Volume 88.6 fL (80.0-100.0); Mean Platelet Volume 10.7 fL (9.4-12.4); Monocytes # (auto) 0.83 K/uL (0.11-0.59); Monocytes % (auto) 11.3 %; Neutrophils # (auto) 4.25 K/uL (1.40-6.50); Neutrophils % (auto) 58.1 %; Platelet Count 289 K/uL (130-400); RDW Coefficient of Variation 12.1 % (11.5-14.5); RDW Standard Deviation 39.3 fL (36.4-46.3); Red Blood Count 5.25 M/uL (4.70-6.10); White Blood Count 7.33 K/ul (4.8-10.8)
[2024-11-15 06:02] LABS: BUN Creatinine Ratio 17.7 (10-20); Calcium 8.9 mg/dl (8.6-10.3); Chol HDL Ratio 3.4 (0-5); Creatinine Clr Calc Pharmacy 107.2 ml/min
[2024-11-15 07:28] LABS: Estimated Average Glucose 171 mg/dl; Hemoglobin A1C 7.6 % (4.5-5.6)
[2024-11-15] MEDS: ENOXAPARIN INJ 40 MG/0.4 ML SYR SQ SCH (09:19)
[2024-11-15] MEDS: CYANOCOBALAMIN (B-12) 500 MCG TABLET PO SCH (09:19)
[2024-11-15] MEDS: GABAPENTIN 300 MG CAP PO SCH (09:19)
[2024-11-15] MEDS: CLOPIDOGREL BISULFATE 75 MG TAB PO SCH (09:20)
[2024-11-15] MEDS: CHOLECALCIFEROL 25 MCG (1000 UNITS) TAB PO SCH (09:20)
[2024-11-15] MEDS: ATORVASTATIN 40 MG TAB PO SCH (09:20)
[2024-11-15] MEDS: ASPIRIN 81 MG ECTAB PO SCH (09:20)
--- NOTE | 2024-11-15 14:52 | Hospitalist Progress Note ---
Date of Service November 15, 2024 Assessment & Plan (1) Acute CVA (cerebrovascular accident): (2) Gait instability: (3) Type 2 diabetes mellitus: (4) Hyperlipidemia: (5) Diabetic peripheral neuropathy: (6) Vitamin B12 deficiency: Plan 64 year old man with history of prior CVA, DM2, dyslipidemia, diabetic neuropathy, B12 deficiency, and other history as outlined below who presents with issues with his balance for the last 2-3 days. 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 CTA Neck noted progressive severe focal narrowing distally in vertebral arteries bilaterally MRI brain w/wo co noted acute ischemic injury of right capsule and late subacute ischemic injury of periventricular white matter in left temporal lobe TTE noted mild conc LVH, EF 55-60%, Grade I DD, no evidence of ASD, PFO or interatrial shunt HbA1c 7.6 Lipid panel noted TG 262 Continue DAPT, high intensity statin PT/OT eval Awaiting Neuro eval Needs Zio patch to be arranged by PCP Outpatient follow up with Vascular sx regarding vascular findings on CTA head and neck #Type 2 Diabetes #Diabetic peripheral neuropathy BSG ACHS ISS #Hyperlipidemia Continue statin #B12 deficiency Chronic, stable, continue outpatient supplement. Code status: full code DVT prophylaxis: Britany Perez spent a total of 50 minutes coordinating, documenting and providing care for this patient excluding time spent in performance of separately billed services Admission and Anticipated Discharge Date Admission Date: November 14, 2024 Subjective Patient seen and examined Reported gait abnormality in the past few days Denied other complaints Physical Exam Constitutional: + well hydrated; no acute distress Eyes: PERRL, conjunctivae normal, anicteric sclerae ENMT: external ear and nose normal, oropharynx normal Respiratory: normal respiratory effort, lungs clear to auscultation Cardiovascular: Rate/Rhythm: regular rate and regular rhythm Gastrointestinal (Abdomen): normal bowel sounds, soft, nontender, no hepatosplenomegaly Musculoskeletal: no cyanosis or clubbing, extremities motor strength 5/5 Neurologic: PERRL, EOMI, accommodation nl, no face palsy, no dysarthria Psychiatric: A+Ox3, euthymic affect Results & Data Results & Data Vital Signs (Past 12 Hours) Vital Signs Temp Pulse Pulse Resp BP Pulse Ox O2 Del Method 11/15/24 10:58 36.3 C L 85 19 158/88 H 96 Room Air 11/15/24 08:07 78 11/15/24 07:18 36.3 C L 78 19 134/62 95 Room Air 11/15/24 02:56 36.6 C 79 18 134/61 93 Room Air Laboratory Results Abnormal lab results 11/14/24 11/14/24 11/14/24 Range/Units 17:01 19:13 20:18 Weston # (Auto) (0.11-0.59) K/uL Glucose (70-99(Fasting)) mg/dl POC Glucose 110 H 153 H (70-99) mg/dl Hemoglobin A1c (4.5-5.6) % Triglycerides (0-150) mg/dl VLDL Cholesterol, Calc (0-30) mg/dl Urine Glucose (UA) 3+ H (Negative) Urine Ketones 2+ H (Negative) 11/15/24 11/15/24 11/15/24 Range/Units 05:08 07:45 11:58 Weston # (Auto) 0.83 H (0.11-0.59) K/uL Glucose 130 H (70-99(Fasting)) mg/dl POC Glucose 144 H 154 H (70-99) mg/dl Hemoglobin A1c 7.6 H (4.5-5.6) % Triglycerides 262 H (0-150) mg/dl VLDL Cholesterol, Calc 52 H (0-30) mg/dl Urine Glucose (UA) (Negative) Urine Ketones (Negative) (3) Type 2 diabetes mellitus Diabetes mellitus complication status: with other specified complication Diabetes mellitus fpc insulin use: without fpc use Qualified Code(s): E11.69 - Type 2 diabetes mellitus with other specified complication (4) Hyperlipidemia Hyperlipidemia type: unspecified Qualified Code(s): E78.5 - Hyperlipidemia, unspecified
--- NOTE | 2024-11-15 17:13 | Neurology Consultation ---
Date of Consultation November 15, 2024 Assessment & Plan (1) Acute CVA (cerebrovascular accident): Affecting the bilateral cerebral white matter could be attributable to intracranial atherosclerotic disease. Cannot entirely rule out underlying paroxysmal A-fib given that the patient reported some chest pains Plan Images reviewed as above. Recommend aspirin 81 mg in addition to Plavix 75 mg plus atorvastatin 80 mg for 3 months. Recommend Zio patch as an outpatient. Recommend close follow-up with neurology. Continue with PT OT Telehealth Consultation Telehealth Information Telehealth Information: I performed this visit using a real-time telehealth connection between my location and the patients location ([facility]). After connecting through interactive tele-video, patient was identified by name and date of and/or wristband check.Patient (or authorized healthcare patient access representative) was informed that this was a telemedicine visit and it was being conducted confidentially over secure lines. My office door was closed and no one else was present in the room with me.Patient (or authorized healthcare patient access representative) provided consent to proceed with the visit, expressed an understanding of privacy and security of the telemedicine visit, and gave permission to have a hospital patient access representative in the room in order to assist with the visit and to conduct portions of the visit, as needed. I informed the patient (or authorized healthcare patient access representative) that I reviewed their record and presented the opportunity for them to ask any questions regarding the visit today. The patient agreed to participate. History of Present Illness Reason for Consultation: acute ischemic stroke Attending Physician: Karly Claire MD History of Present Illness 64-year-old male patient with PMH of type II DM, HTN, diabetic neuropathy, B12 deficiency who presented to the hospital on 14 November for balance issues that started 2 to 3 days prior. He reports that on Thursday the he was doing okay he went to the grocery store and felt that there was so much music and people talking loud that threw him off balance he came back to his car at that point he did not have any numbness or weakness or difficulties with speech his balance was off only. The rest of the day was uneventful however his symptoms persisted through Thursday and Thursday so he decided to come to the hospital. CT scan of the head shows subacute stroke, CTA showed scattered intra and extracranial atherosclerotic disease and he was admitted for further evaluation and treatment. He is currently on aspirin and Plavix. He reports that his balance has improved a little bit today. He denies any visual changes, he denies any numbness or weakness, he feels a little flustered and feels like he has a sensory overload at times. He denies any previous history of similar events Allergies Allergy/AdvReac Type Severity Reaction Status Date / Time amoxicillin Allergy Unknown Verified 02/18/21 14:08 Penicillins Allergy HIVES Verified 02/18/21 14:08 Home Medications Medication Instructions Recorded Confirmed Type cholecalciferol (vitamin D3) 50 2,000 units PO QAM #30 caps 02/11/19 11/14/24 History mcg (2,000 unit) capsule metformin 1,000 mg tablet 1,000 mg PO BID #60 tabs 02/15/19 11/14/24 Rx gabapentin 300 mg capsule 300 mg PO UD 07/19/20 11/14/24 History aspirin 81 mg chewable tablet 81 mg PO QAM 02/18/21 11/14/24 History cinnamon bark 500 mg capsule 500 mg PO BID 02/18/21 11/14/24 History (Cinnamon) empagliflozin 25 mg tablet 25 mg PO QAM 02/18/21 11/14/24 History (Jardiance) mecobalamin (vitamin B12) 1,000 1,000 mcg PO QAM 02/18/21 11/14/24 History mcg chewable tablet (B12 Active) alpha lipoic acid 600 mg tablet 600 mg PO DAILY 11/14/24 11/14/24 History atorvastatin 40 mg tablet 40 mg PO DAILY 11/14/24 11/14/24 History dulaglutide 1.5 mg/0.5 mL 1.5 mg subcut WK 11/14/24 11/14/24 History subcutaneous pen injector (Trulicity) Patient History Medical History Vitamin B12 deficiency Type 2 diabetes mellitus Hyperlipidemia Diabetic peripheral neuropathy History of renal calculi Surgical History History of ureteroscopy ureteral stent placement History of cataract surgery Family History Family/Other Breast cancer Colon cancer Prostate cancer Myocardial infarction Mother Heart disease Grandmother (Maternal) Heart disease Father Prostate cancer Stroke Diabetes Grandfather (Paternal) Prostate cancer Sister Diabetes Family/Other Diabetes nephew Denies family history of Ovarian cancer Social History Smoking Status: Never smoker Do You Dip or Chew Tobacco: No; Hx Alcohol Use: Yes Alcohol type: beer Hx Substance Use: No Preferred Language: [place] Communication Ability: Effective Visual Impairment: No Limitations Hearing Ability: Normal 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 Beliefs That Will Affect Care: None marital status: Single Current Living Situation: Spouse current occupational status: employed 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 Other Information That Helps Us Care for You: No Feels Safe at Home: Yes Safety Concerns: Feels Safe At This Time Physical Activity Frequency: Does not Exercise Seatbelt Use: always Assistive Devices: None Physical Exam General Constitutional: Appearance normally developed Head and face: normocephalic and atraumatic Eyes: no ptosis, no anisocoria, and no dysconjugate gaze Respiratory: normal effort Cardiovascular: regular rhythm and regular rate Abdomen: non distended Skin: no rashes, lesions, or ulcers noted Psychiatric: normal judgement and insight, normal mood, and normal affect NEUROLOGIC EXAMINATION: Mental Status:alert, oriented to time, place, person, normal recent memory, normal remote memory, normal attention span, normal concentration, normal language and normal fund of knowledge Cranial Nerves: CN 2 - no visual defect on confrontation and pupils round, equal, reactive to light CN 3, 4, 6 - extra-ocular movements intact and no nystagmus CN 5 - facial sensation intact CN 7 - no facial asymmetry CN 8 - intact hearing CN 9, 10 - palate symmetric, normal gag CN 11 - good shoulder shrug CN 12 - tongue midline MOTOR: Strength was at least antigravity throughout, Pronator drift was absent and There were no abnormal movements SENSATION: intact and symmetric to pinprick, light touch, vibration and joint position GAIT: stable, no ataxia and can perform tandem walking COORDINATION: no ataxia with finger to nose testing and heel to meredith testing REFLEXES: cannot assess over telemedicine NIH Stroke Scale: 1a. Level of Consciousness: alert = 0 1b. LOC Questions: (month, age): both correct = 0 1c. LOC Commands (open and close eyes, make fist and let go using non-paretic hand): obeys both correctly = 0 2. Best Gaze (eyes open and patient follows examiner's finger or face): normal = 0 3. Visual (visual threat or finger counting in each quadrant): no loss = 0 4. Facial Palsy (show teeth, raise eye brows and squeeze eyes shut, or grimace symmetry in a comatose patient): normal = 0 5a. Motor Arm (extend arm (palms down) to 90 degrees and score drift/movement (10 seconds) - Left: no drift = 0 5b. Motor Arm: (extend arm (palms down) to 90 degrees and score drift/movement (10 seconds) - Right: no drift = 0 6a. Motor Leg (elevate leg 30 degrees and score drift/ movement (5 seconds) - Left: no drift = 0 6b. Motor Leg (elevate leg 30 degrees and score drift/ movement (5 seconds) - Right: no drift = 0 7. Limb Ataxia (finger to nose, heel down meredith): absent = 0 8. Sensory (pin prick to face, arm, trunk and leg, compare side to side): normal = 0 9. Best Language: no aphasia = 0 10. Dysarthria (evaluate speech clarity by patient repeating listed words): normal articulation = 0 11. Extinction and Inattention: no neglect = 0 Total: 0 Results & Data Vital Signs (Past 12 Hours) Vital Signs Temp Pulse Pulse Resp BP Pulse Ox O2 Del Method 11/15/24 15:17 36.5 C 86 19 158/85 H 97 Room Air 11/15/24 10:58 36.3 C L 85 19 158/88 H 96 Room Air 11/15/24 08:07 78 11/15/24 07:18 36.3 C L 78 19 134/62 95 Room Air Laboratory Results Laboratory Results - last 24 hr 11/14/24 11/14/24 11/15/24 19:13 20:18 05:08 WBC 7.33 RBC 5.25 Hgb 15.8 Hct 46.5 MCV 88.6 MCH 30.1 MCHC 34.0 RDW Std Deviation 39.3 RDW Coeff of Sandeep 12.1 Plt Count 289 MPV 10.7 Immature Gran % (Auto) 0.4 Neut % (Auto) 58.1 Lymph % (Auto) 27.8 [place] % (Auto) 11.3 Eos % (Auto) 1.9 Baso % (Auto) 0.5 Neut # (Auto) 4.25 Lymph # (Auto) 2.04 [place] # (Auto) 0.83 H Eos # (Auto) 0.14 Baso # (Auto) 0.04 Immature Gran # (Auto) 0.03 Sodium 137 Potassium 4.0 Chloride 103 Carbon Dioxide 26 Anion Gap 8 BUN 14 Creatinine 0.79 Est Cr Clr Drug Dosing 107.2 eGFR 99.82 BUN/Creatinine Ratio 17.7 Glucose 130 H POC Glucose 153 H Estimat Average Glucose 171 Hemoglobin A1c 7.6 H Calcium 8.9 Triglycerides 262 H Cholesterol 100 LDL Cholesterol, Calc 19 VLDL Cholesterol, Calc 52 H HDL Cholesterol 29 Cholesterol/HDL Ratio 3.4 Urine Color Yellow Urine Appearance Clear Urine pH 6.0 Ur Specific [place] 1.010 Urine Protein Negative Urine Glucose (UA) 3+ H Urine Ketones 2+ H Urine Blood Negative Urine Nitrite Negative Urine Bilirubin Negative Urine Urobilinogen Negative Ur Leukocyte Esterase Negative 11/15/24 11/15/24 11/15/24 07:45 11:58 16:46 WBC RBC Hgb Hct MCV MCH MCHC RDW Std Deviation RDW Coeff of Sandeep Plt Count MPV Immature Gran % (Auto) Neut % (Auto) Lymph % (Auto) [place] % (Auto) Eos % (Auto) Baso % (Auto) Neut # (Auto) Lymph # (Auto) [place] # (Auto) Eos # (Auto) Baso # (Auto) Immature Gran # (Auto) Sodium Potassium Chloride Carbon Dioxide Anion Gap BUN Creatinine Est Cr Clr Drug Dosing eGFR BUN/Creatinine Ratio Glucose POC Glucose 144 H 154 H 181 H Estimat Average Glucose Hemoglobin A1c Calcium Triglycerides Cholesterol LDL Cholesterol, Calc VLDL Cholesterol, Calc HDL Cholesterol Cholesterol/HDL Ratio Urine Color Urine Appearance Urine pH Ur Specific [place] Urine Protein Urine Glucose (UA) Urine Ketones Urine Blood Urine Nitrite Urine Bilirubin Urine Urobilinogen Ur Leukocyte Esterase Diagnostic Findings Echocardiogram shows mild concentric left LVH, grade 1 diastolic dysfunction, interatrial septum is intact without evidence of ASD or PFO or intra-atrial shunt, the left atrium is normal in size. CT head right subcortical subacute stroke CTA head and neck showed high-grade stenosis of the right [employer] with scattered intra and extracranial atherosclerotic disease. MRI of the brain showed subacute stroke of the right subcortical white matter, another ischemic injury of the periventricular white matter in the left temporal lobe Medications Administered Home Medications Medication Instructions Recorded Confirmed Last Taken cholecalciferol (vitamin D3) 50 2,000 units PO QAM #30 caps 02/11/19 11/14/24 11/14/24 mcg (2,000 unit) capsule metformin 1,000 mg tablet 1,000 mg PO BID #60 tabs 02/15/19 11/14/24 11/14/24 gabapentin 300 mg capsule 300 mg PO UD 07/19/20 11/14/24 11/14/24 aspirin 81 mg chewable tablet 81 mg PO QAM 02/18/21 11/14/24 Unknown cinnamon bark 500 mg capsule 500 mg PO BID 02/18/21 11/14/24 11/14/24 (Cinnamon) empagliflozin 25 mg tablet 25 mg PO QAM 02/18/21 11/14/24 11/14/24 (Jardiance) mecobalamin (vitamin B12) 1,000 1,000 mcg PO QAM 02/18/21 11/14/24 11/14/24 mcg chewable tablet (B12 Active) alpha lipoic acid 600 mg tablet 600 mg PO DAILY 11/14/24 11/14/24 11/14/24 atorvastatin 40 mg tablet 40 mg PO DAILY 11/14/24 11/14/24 11/14/24 dulaglutide 1.5 mg/0.5 mL 1.5 mg subcut WK 11/14/24 11/14/24 11/12/24 subcutaneous pen injector (Trulicity) Active Medications Generic Name Dose Route Start Last Admin Trade Name Freq PRN Reason Stop Dose Admin Aspirin 81 mg 11/15/24 09:00 11/15/24 09:20 Aspirin 81 Mg Ectab PO 12/15/24 08:59 81 mg QAM RILEY Administration Atorvastatin Calcium 80 mg 11/15/24 09:00 11/15/24 09:20 Atorvastatin 40 Mg Tab PO 12/15/24 08:59 80 mg QAM RILEY Administration Clopidogrel Bisulfate 75 mg 11/15/24 09:00 11/15/24 09:20 Clopidogrel Bisulfate 75 Mg Tab PO 12/15/24 08:59 75 mg QAM RILEY Administration Cyanocobalamin 1,000 mcg 11/15/24 09:00 11/15/24 09:19 Cyanocobalamin (B-12) 500 Mcg Tablet PO 12/15/24 08:59 1,000 mcg QAM RILEY Administration Enoxaparin Sodium 40 mg 11/15/24 09:00 11/15/24 09:19 Enoxaparin Inj 40 Mg/0.4 Ml Syr SQ 12/15/24 08:59 40 mg QAM RILEY Administration Gabapentin 300 mg 11/15/24 09:00 11/15/24 09:19 Gabapentin 300 Mg Cap PO 12/15/24 08:59 300 mg QAM RILEY Administration Gabapentin 600 mg 11/14/24 21:00 11/14/24 20:05 Gabapentin 600 Mg Tab PO 12/14/24 20:59 600 mg HS RILEY Administration Insulin Aspart 0 units 11/14/24 21:00 11/15/24 12:48 Insulin Aspart Per Unit Charge SC 12/14/24 20:59 5 units ACHS RILEY Administration Losartan Potassium 100 mg 11/14/24 16:15 11/15/24 09:19 Losartan Potassium 50 Mg Tab PO 12/14/24 16:14 100 mg QAM RILEY Administration Vitamin D 50 mcg 11/15/24 09:00 11/15/24 09:20 Cholecalciferol 25 Mcg (1000 Units) Tab PO 12/15/24 08:59 50 mcg QAM RILEY Administration ECG Additional Comments: NSR
[2024-11-16 06:40] LABS: Basophils # (auto) 0.06 K/uL (0.00-0.20); Basophils % (auto) 0.8 %; Eosinophils # (auto) 0.12 K/uL (0.00-0.50); Eosinophils % (auto) 1.5 %; Hematocrit (blood only) 46.3 % (42.0-52.0); Hemoglobin 15.7 g/dl (14.0-18.0); Immature Granulocytes # (auto) 0.02 K/uL (0.01-0.20); Immature Granulocytes % (auto) 0.3 %; Lymphocytes # (auto) 2.88 K/uL (1.20-3.40); Lymphocytes % (auto) 36.3 %; Mean Corpuscular Hgb Conc 33.9 g/dL (32.0-36.0); Mean Corpuscular Volume 88.4 fL (80.0-100.0); Monocytes # (auto) 1.02 K/uL (0.11-0.59); Monocytes % (auto) 12.9 %; Neutrophils # (auto) 3.83 K/uL (1.40-6.50); Neutrophils % (auto) 48.2 %; Platelet Count 313 K/uL (130-400); RDW Coefficient of Variation 12.1 % (11.5-14.5); Red Blood Count 5.24 M/uL (4.70-6.10); White Blood Count 7.93 K/ul (4.8-10.8)
[2024-11-16 07:20] VITALS: BP 117/74; PULSE 82; RESP 19; TEMP 97.7; O2SAT 94
[2024-11-16 07:29] LABS: Calcium 9.1 mg/dl (8.6-10.3); Potassium 3.8 mmol/L (3.5-5.1)
[2024-11-16 07:35] LABS: BUN Creatinine Ratio 22.2 (10-20); Creatinine Clr Calc Pharmacy 93.9 ml/min
--- NOTE | 2024-11-16 09:18 | Pharmacy Report ---
- Date of Service November 16, 2024 - Pharmacy CVA/TIA Medication Review Medications to Prevent Stroke handout has been added to the patients discharge packet. Antiplatelet(s) * Aspirin 81mg + clopidogrel 75mg Cholesterol * High intensity statin: atorvastatin 80 mg daily DVT Prophylaxis * Enoxaparin SQ Therapeutic Anticoagulation * No history of Afib/Aflutter noted Type 2 Diabetes * Patient has T2DM and patient is prescribed empagliflozin.
[2024-11-16] MEDS: STROKE PATIENT DISCHARGE STA (10:32)
--- NOTE | 2024-11-20 16:26 | Discharge Summary ---
Discharge Summary Date of Service November 20, 2024 Principal Dx & Hospital Course #1 = Principal Diagnosis (1) Acute CVA (cerebrovascular accident): (2) Gait instability: (3) Type 2 diabetes mellitus: (4) Hyperlipidemia: (5) Diabetic peripheral neuropathy: (6) Vitamin B12 deficiency: Plan per previous hospitalist notes with addendum: year old man with history of prior CVA, DM2, dyslipidemia, diabetic neuropathy, B12 deficiency, and other history as outlined below who presents with issues with his balance for the last 2-3 days. #Acute CVA CT Head noted right sided infarction of uncertain chronicity CTA Head noted age-indeterminate basal ganglia and right frontal lobe chavez radiata lacunar infarcts new from 2019 comparison, age indeterminate high grade stenosis of V4 segment left vertebral artery Unchanged chronic high grade stenosis of right [employer] CTA Neck noted progressive severe focal narrowing distally in vertebral arteries bilaterally MRI brain w/wo co noted acute ischemic injury of right capsule and late subacute ischemic injury of periventricular white matter in left temporal lobe TTE noted mild conc LVH, EF 55-60%, Grade I DD, no evidence of ASD, PFO or interatrial shunt HbA1c 7.6 Lipid panel noted TG 262 Continue DAPT, high intensity statin PT/OT eval Awaiting Neuro eval Needs Zio patch to be arranged by PCP Outpatient follow up with Vascular sx regarding vascular findings on CTA head and neck 11/20 recommendations by [facility] neurologist Dr. Matt Jefferson: Acute CVA (cerebrovascular accident): Affecting the bilateral cerebral white matter could be attributable to intracranial atherosclerotic disease. Cannot entirely rule out underlying paroxysmal A-fib given that the patient reported some chest pains Plan Images reviewed as above. Recommend aspirin 81 mg in addition to Plavix 75 mg plus atorvastatin 80 mg for 3 months. Recommend Zio patch as an outpatient. Recommend close follow-up with neurology. # Hypertension Losartan 100 mg p.o. daily started monitor blood pressure closely #Multiple Carotid and Intracranial Artery Stenosis seen on CT angio head and neck: Atherosclerosis of the distal internal carotid arteries results in up to 50% stenosis bilaterally. The bilateral anterior and middle cerebral arteries are also patent. Dominant right vertebral artery. There is high-grade stenosis within the mid V4 segment of the left vertebral artery on image 66 of series 301 which has progressed from the prior. Patent basilar artery. Mild multifocal stenoses noted throughout the left posterior cerebral arteries. There are a few areas of chronic short segment high-grade stenosis noted within the right P1 segment of the posterior cerebral artery which are similar to prior. Bilateral common and internal carotid arteries show no significant narrowing or occlusion. Right vertebral artery is dominant. There is severe focal narrowing distally at the right vertebral artery, progressive. There is severe focal narrowing/possible short segment occlusion distally at the left vertebral artery, progressive. No other significant narrowing seen at the vertebral arteries. Basilar artery is patent. Please refer to full report in the Ordered Studies section Further work up, management, and ff up as outpatient- refer to Vascular Surgery #Type 2 Diabetes #Diabetic peripheral neuropathy BSG ACHS ISS #Hyperlipidemia Continue statin #B12 deficiency Chronic, stable, continue outpatient supplement. Notes For Next Care Provider Please arrange for Zio patch foreign student adviser placement. Medication Changes From Visit Per assessment and plan Admission HPI Per Admitting Provider This is a 64 y/o male with history of prior CVA, DM2, dyslipidemia, diabetic neuropathy, B12 deficiency, and other history as outlined below who presents with issues with his balance for the last 2-3 days. He reports that he has felt off for the last two weeks with blurry vision then increased sensitivity to sounds and poor appetite. Over the last 2-3 days, he has noted difficulty with feeling off balance though denies overt vertigo or dizziness. He feels like he cannot keep his balance particularly with position changes. He has fallen at home when he lost his balance trying to get changed. Two days ago, he noted being at the grocery store and having to use the cart to help him stay balanced while walking through the store. He denies dysphagia, dysarthria, expressive aphasia, syncope. He did develop a posterior GARAY today, which was part of the reason he came to the ED for evaluation. Denies significant chest pain, dyspnea, change in bowel habits, urinary symptoms. He does note living under high amounts of stress but no significant stressful event recently. He admits that he doesn't consistently take the recommended aspirin 81 mg as he often forgets it. Of note, he saw his PCP last week and his A1c from Sep was noted to be elevated at 7.5 and triglycerides were elevated to ~400 on recent labs, which was attributed to the hyperglycemia. He is taking the recommended atorvastatin 40 mg daily as prescribed. Admission Exam Per Admitting Provider General: awake, alert, NAD HEENT: PERRL, EOMI, tongue midline, no facial droop at present Neck: supple, trachea midline Heart: RRR, no M/G/R Lungs: CTA bilaterally Abdomen: soft, NT, +BS Extremities: distal pulses intact and equal, no pedal edema Neurologic: moving all extremities, no focal weakness noted, finger to nose intact, negative seated Romberg, no pronator drift Skin: warm, dry, no jaundice or rashes noted Discharge Exam General- oriented x 3, not in distress, speaks in sentences with no effort or accessory muscle use Eyes- anicteric Neck- no JVD Lungs- clear breath sounds bilaterally, no rales/wheezes Heart- normal rate, regular rhythm; no murmurs Abdomen- normal bowel sounds, nondistended, soft, nontender Extremities- no pretibial edema, no calf tenderness Neuro- alert, oriented x 3; no gross focal neurologic deficits Skin- warm & dry Updated Medication List Medication Instructions Recorded Confirmed Type cholecalciferol (vitamin D3) 50 2,000 units PO QAM #30 caps 02/11/19 11/14/24 History mcg (2,000 unit) capsule metformin 1,000 mg tablet 1,000 mg PO BID #60 tabs 02/15/19 11/14/24 Rx gabapentin 300 mg capsule 300 mg PO UD 07/19/20 11/14/24 History aspirin 81 mg chewable tablet 81 mg PO QAM 02/18/21 11/14/24 History cinnamon bark 500 mg capsule 500 mg PO BID 02/18/21 11/14/24 History (Cinnamon) empagliflozin 25 mg tablet 25 mg PO QAM 02/18/21 11/14/24 History (Jardiance) mecobalamin (vitamin B12) 1,000 1,000 mcg PO QAM 02/18/21 11/14/24 History mcg chewable tablet (B12 Active) alpha lipoic acid 600 mg tablet 600 mg PO DAILY 11/14/24 11/14/24 History dulaglutide 1.5 mg/0.5 mL 1.5 mg subcut WK 11/14/24 11/14/24 History subcutaneous pen injector (Trulicity) atorvastatin 40 mg tablet 80 mg (2 x 40 mg) PO QAM 30 days 11/16/24 Rx #60 tabs clopidogrel 75 mg tablet 75 mg PO QAM 30 days #30 tabs 11/16/24 Rx losartan 50 mg tablet 100 mg (2 x 50 mg) PO QAM 30 days 11/16/24 Rx #60 tabs Hospital Stay Data Consultations 11/14/24 14:27 ED Decision to Admit Stat 11/14/24 16:55 Consult Neurology Routine Diagnostic Imagining Performed Laboratory Results WBC 7.93 K/ul (4.8-10.8) 11/16/24 05:22 RBC 5.24 M/uL (4.70-6.10) 11/16/24 05:22 Hgb 15.7 g/dl (14.0-18.0) 11/16/24 05:22 Hct 46.3 % (42.0-52.0) 11/16/24 05:22 MCV 88.4 fL (80.0-100.0) 11/16/24 05:22 MCH 30.0 pg (25.0-34.0) 11/16/24 05:22 MCHC 33.9 g/dL (32.0-36.0) 11/16/24 05:22 RDW Std Deviation 39.0 fL (36.4-46.3) 11/16/24 05:22 RDW Coeff of Sandeep 12.1 % (11.5-14.5) 11/16/24 05:22 Plt Count 313 K/uL (130-400) 11/16/24 05:22 MPV 11.0 fL (9.4-12.4) 11/16/24 05:22 Immature Gran % (Auto) 0.3 % 11/16/24 05:22 Neut % (Auto) 48.2 % 11/16/24 05:22 Lymph % (Auto) 36.3 % 11/16/24 05:22 [place] % (Auto) 12.9 % 11/16/24 05:22 Eos % (Auto) 1.5 % 11/16/24 05:22 Baso % (Auto) 0.8 % 11/16/24 05:22 Neut # (Auto) 3.83 K/uL (1.40-6.50) 11/16/24 05:22 Lymph # (Auto) 2.88 K/uL (1.20-3.40) 11/16/24 05:22 [place] # (Auto) 1.02 K/uL (0.11-0.59) H 11/16/24 05:22 Eos # (Auto) 0.12 K/uL (0.00-0.50) 11/16/24 05:22 Baso # (Auto) 0.06 K/uL (0.00-0.20) 11/16/24 05:22 Immature Gran # (Auto) 0.02 K/uL (0.01-0.20) 11/16/24 05:22 PT 10.3 Seconds (9.0-12.0) 11/14/24 12:28 INR 0.9 (0.9-1.1) 11/14/24 12:28 Sodium 137 mmol/L (136-145) 11/16/24 05:22 Potassium 3.8 mmol/L (3.5-5.1) 11/16/24 05:22 Chloride 103 mmol/L (98-107) 11/16/24 05:22 Carbon Dioxide 25 mmol/L (21-32) 11/16/24 05:22 Anion Gap 9 (3-11) 11/16/24 05:22 BUN 20 mg/dl (6-23) 11/16/24 05:22 Creatinine 0.90 mg/dl (0.6-1.4) 11/16/24 05:22 Est Cr Clr Drug Dosing 93.9 ml/min 11/16/24 05:22 eGFR 95.97 11/16/24 05:22 BUN/Creatinine Ratio 22.2 (10-20) H 11/16/24 05:22 Glucose 145 mg/dl (70-99(Fasting)) H 11/16/24 05:22 POC Glucose 169 mg/dl (70-99) H 11/16/24 07:54 Estimat Average Glucose 171 mg/dl 11/15/24 05:08 Hemoglobin A1c 7.6 % (4.5-5.6) H 11/15/24 05:08 Calcium 9.1 mg/dl (8.6-10.3) 11/16/24 05:22 Total Bilirubin 0.6 mg/dl (0.2-1.0) 11/14/24 12:28 AST 16 U/L (13-39) 11/14/24 12:28 ALT 20 U/L (7-52) 11/14/24 12:28 Alkaline Phosphatase 62 U/L (34-104) 11/14/24 12:28 Troponin I High Sens 3.4 pg/ml (0-20) 11/14/24 12:28 Total Protein 7.9 gm/dl (6.0-8.3) 11/14/24 12:28 Albumin 4.7 gm/dl (3.4-5.0) 11/14/24 12:28 Globulin 3.2 gm/dl (2.5-4.0) 11/14/24 12:28 Albumin/Globulin Ratio 1.5 (0.9-2) 11/14/24 12:28 Triglycerides 262 mg/dl (0-150) H 11/15/24 05:08 Cholesterol 100 mg/dl (0-200) 11/15/24 05:08 LDL Cholesterol, Calc 19 mg/dl 11/15/24 05:08 VLDL Cholesterol, Calc 52 mg/dl (0-30) H 11/15/24 05:08 HDL Cholesterol 29 mg/dl 11/15/24 05:08 Cholesterol/HDL Ratio 3.4 (0-5) 11/15/24 05:08 Urine Color Yellow 11/14/24 19:13 Urine Appearance Clear (Clear) 11/14/24 19:13 Urine pH 6.0 (4.5-7.5) 11/14/24 19:13 Ur Specific Hawkeye 1.010 (1.000-1.030) 11/14/24 19:13 Urine Protein Negative (Negative) 11/14/24 19:13 Urine Glucose (UA) 3+ (Negative) H 11/14/24 19:13 Urine Ketones 2+ (Negative) H 11/14/24 19:13 Urine Blood Negative (Negative) 11/14/24 19:13 Urine Nitrite Negative (Negative) 11/14/24 19:13 Urine Bilirubin Negative (Negative) 11/14/24 19:13 Urine Urobilinogen Negative (Negative) 11/14/24 19:13 Ur Leukocyte Esterase Negative (Negative) 11/14/24 19:13 Impressions Chest X-Ray 11/14/24 12:10 XR chest 1V portable CLINICAL HISTORY: dizziness COMPARISON STUDY: 04/13/2022 FINDINGS: Heart size and pulmonary vasculature are normal. No effusion, consolidation, or pneumothorax. IMPRESSION: No acute findings. ACT 112: Negative or not required by law. Electronically signed by: Gonzales Walker M.D. 11/14/2024 1:[address] 11/14/24 12:10 CT head/brain wo con CLINICAL HISTORY: dizziness; headache; blurred vision. TECHNIQUE: Multiple axial CT images of the head were obtained without contrast. A dose lowering technique was utilized adhering to the principles of ALARA. COMPARISON: 07/19/2020 FINDINGS: There are interval areas of hypodensity at the right basal ganglia and right periventricular white matter consistent with interval infarction of uncertain chronicity, possibly old.. No intracranial hemorrhage seen. No mass effect, midline shift, or hydrocephalus. Visualized paranasal sinuses are clear. No mastoid effusion. No skull fracture. IMPRESSION: 1. Interval right sided infarction of uncertain chronicity. 2. No intracranial hemorrhage seen. ACT 112: Negative or not required by law. The above report was generated using voice recognition software. It may contain grammatical, syntax or spelling errors. Electronically signed by: Gonzales Walker M.D. 11/14/2024 1:08 PM Head CTA 11/14/24 12:28 CT angio head w con CLINICAL HISTORY: 64 years-old Male with blurred vision; gait instability. Acute stroke like symptoms with blurry vision COMPARISON STUDY: Head CT and CTA neck exams of same day, head CT, CTA head and neck exams 09/19/2019. TECHNIQUE: Following the IV administration of 120 cc of Optiray, CT angiogram of the brain was performed from the skull base to the vertex. Images are reviewed in the axial, sagittal, and coronal planes. 3-D MIPS images are created and assessed. IV contrast was administered without complication. All measurements were obtained according to NASCET criteria. A dose lowering technique was utilized adhering to the principles of ALARA. FINDINGS: CT BRAIN: Dictated separately. Involutional changes with chronic microvascular ischemic disease. Age-indeterminate basal ganglia and right frontal lobe chavez radiata lacunar infarcts are new from prior. CT ANGIOGRAM OF THE BRAIN: Atherosclerosis of the distal internal carotid arteries results in up to 50% stenosis bilaterally. The bilateral anterior and middle cerebral arteries are also patent. Dominant right vertebral artery. There is high-grade stenosis within the mid V4 segment of the left vertebral artery on image 66 of series 301 which has progressed from the prior. Patent basilar artery. Mild multifocal stenoses noted throughout the left posterior cerebral arteries. There are a few areas of chronic short segment high-grade stenosis noted within the right P1 segment of the posterior cerebral artery which are similar to prior. IMPRESSION: 1. Age-indeterminate basal ganglia and right frontal lobe chavez radiata lacunar infarcts are new from the 2019 comparison. 2. Age-indeterminate high-grade stenosis of the V4 segment left vertebral artery is also new from prior. 3. Unchanged chronic high-grade stenoses of the right posterior cerebral artery. ACT 112: Negative or not required by law. The above report was generated using voice recognition software. It may contain grammatical, syntax or spelling errors. Electronically signed by: Angel Glaser M.D. 11/14/2024 1:10 PM Neck CTA 11/14/24 12:28 CT angio neck with con CLINICAL HISTORY: blurred vision; gait instability. COMPARISON STUDY: 07/19/2020 TECHNIQUE: Following the IV administration of 120 of Optiray, CT angiogram of the neck was performed from the aortic arch to the skull base. Images are reviewed in the axial, sagittal, and coronal planes. 3-D MIPS images are created and assessed. IV contrast was administered without complication. All measurements were calculated based on NASCET criteria. A dose lowering technique was utilized adhering to the principles of ALARA. CT DOSE: 1203.79 mGy.cm FINDINGS: Bilateral common and internal carotid arteries show no significant narrowing or occlusion. Right vertebral artery is dominant. There is severe focal narrowing distally at the right vertebral artery, progressive. There is severe focal narrowing/possible short segment occlusion distally at the left vertebral artery, progressive. No other significant narrowing seen at the vertebral arteries. Basilar artery is patent. IMPRESSION: 1. Progressive severe focal narrowing distally at the vertebral arteries bilaterally. 2. No other significant arterial narrowing or occlusion seen at the neck and brain. ACT 112: Negative or not required by law. The above report was generated using voice recognition software. It may contain grammatical, syntax or spelling errors. Electronically signed by: Gonzales Walker M.D. 11/14/2024 1:13 PM Brain MRI 11/14/24 15:09 Exam(s): MRI HEAD W/WO Contrast IV Amt: 9ml gadavist EXAM: MR Head Without and With Intravenous Contrast CLINICAL HISTORY: Reason for exam: strokelike symptoms. TECHNIQUE: Magnetic resonance images of the head/brain without and with intravenous contrast in multiple planes. CONTRAST: Patient received 9ml gadavist of IV contrast COMPARISON: Prior head CT from November 14, 2024. FINDINGS: Brain: There is no acute ischemic injury of the right capsule without evidence of hemorrhagic transformation. There is a late subacute ischemic injury of the periventricular white matter left temporal lobe with mild patchy enhancement. There is a remote ischemic injury of the right anterior capsule. Mild nonspecific white matter changes. The dural venous sinuses are patent. Loss of the normal left vertebral artery flow-void concerning for slow flow blood flow. Ventricles: Unremarkable. No ventriculomegaly. Bones/joints: Unremarkable. No acute fracture. Sinuses: Chronic ethmoid sinusitis. No acute sinusitis. Mastoid air cells: Unremarkable as visualized. No mastoid effusion. Orbits: Bilateral lens replacements. IMPRESSION: There is an acute ischemic injury of the right capsule Without of Hemorrhagic Transformation. There Is a Late Subacute Ischemic Injury of the Periventricular White Matter in the Left Temporal Lobe. Electronically signed by: Margaux Quiroz MD 11/15/24 02:36 AM Pending Results Patient Have Any Pending Studies at Discharge: Yes Discharge Instructions Given to Patient (Per Discharging Provider) PLEASE REFER TO YOUR NEW MEDICATION LIST AND FOLLOW INSTRUCTIONS CAREFULLY. YOUR NEW MEDICATIONS INCLUDE: PLAVIX- antiplatelet for stroke prevention, in addition to Aspirin INCREASE ATORVASTATIN TO 80MG for stroke prevention. RESUME METFORMIN TOMORROW, Thursday11/17/24. FOLLOW UP WITH PRIMARY CARE PHYSICIAN OUTLINED ABOVE. YOU NEED TO HAVE A ZIO PATCH HEART MONITOR PLACED TO DETECT POSSIBLE UNDERLYING IRREGULAR HEART BEAT. YOU ALSO NEED TO FOLLOW UP WITH A NEUROLOGIST IN 2-3 WEEKS. YOUR PRIMARY CARE PHYSICIAN CAN ASSIST YOU WITH ARRANGING FOR ABOVE. Who to Call and When: Medical Emergencies: Call 911 immediately if you experience any of the following warning signs and symptoms of Stroke: Sudden numbness or weakness of the face, arm or leg, especially on one side of the body Sudden confusion, trouble speaking or understanding Sudden trouble seeing in one or both eyes Sudden trouble walking, dizziness, loss of balance or coordination Sudden severe headache with no cause Do not delay calling 911 if you experience any warning signs or symptoms of a stroke. Delay in seeking medical attention may affect what treatments can be given to you. Risk Factors for Stroke: You can reduce your chances of stroke by working with your medical provider to adopt a healthy lifestyle. Some specific ways to lower your chance of stroke are: If you are a smoker, now is the time to stop smoking cigarettes If you are diabetic, improve the control of your blood sugars Avoid excessive amounts of alcohol Control high blood pressure Lose weight if you are overweight Be sure to lead an active lifestyle Eat a healthy diet low in salt, cholesterol and fat You should know about other risk factors for stroke that you are unable to control. These include: Age 55 years or older Male gender Certain racial groups: , or / Family History of Stroke, Mini stroke or Heart Attack Sickle Cell Disease Follow Up: It is important for you to keep your follow up appointments with your medical provider. . . Total Time Total Time Spent Total Time Spent (In Minutes): 45 minutes
== END 2024-11-16 11:09 | disposition home or self-care (01) | DRG 66 ==
LOC: ED 11:59 → SUATTDRO 15:14 → 4W 15:14